=== PATIENT | female | born 1945 | race Caucasian/White ===

== ENCOUNTER → 2019-02-17 09:31 | Outpatient (CLI) | payer MEDICARE, SELFPAY ==
[2019-02-17 11:03] LABS: Alanine Aminotransferase 24 U/L (12-78); Albumin Level 3.5 gm/dL (3.4-5.0); Alkaline Phosphatase 72 U/L (46-116); Aspartate Amino Transferase 17 U/L (15-37); Bilirubin,Total 0.7 mg/dL (0.2-1.0); Blood Urea Nitrogen 12 mg/dL (7-18); Calcium 9.1 mg/dL (8.5-10.1); Carbon Dioxide 30 mmol/L (21.0-32.0); Chloride 105 mmol/L (98-107); Chol/HDL Ratio 4.8 (1-3.5); Cholesterol 217 mg/dL (140-200); Estimated Glomerular Filt Rate 71 ml/min (>60); GFR (African American) 85 ML/MIN (>60); Globulin 3.5 gm/dl (1.3-3.2); Glucose 93 mg/dL (74-106); HDL Cholesterol 45 mg/dL (29-89); LDL Cholesterol 151 mg/dL (0-130); Sodium 143 mmol/L (136-145); Triglycerides 105 mg/dL (30-200); VLDL Cholesterol 21 mg/dL (0-40)
== END ==
PROVIDERS: Visit Provider Nurse Practitioner Family
DX: I10 Essential (primary) hypertension (principal); Z13.220 Encounter for screening for lipoid disorders
CPT/HCPCS: 36415; 80053; 80061

== ENCOUNTER → 2020-04-12 09:21 | Outpatient (CLI) | payer MEDICARE, OTHER, SELFPAY ==
--- NOTE | 2020-04-12 09:28 | XR_ITS ---
PROCEDURE: XR DEXA AXIAL SKELETON CLINICAL INDICATION: POST MENOPAUSAL COMPARISON: No exams were available for comparison FINDINGS: The right 1/3 radial density is 0.543 grams/centimeters sq with T-score -2.5, osteoporosis. Total right hip density 0.760 grams/centimeters sq with a T-score -1.5, osteopenia Total spine density 0.958 grams/centimeters sq with a T-score -0.8. IMPRESSION: Osteoporosis with high fracture risk. Treatment advised. Suggest follow-up exam in 1 year Dictated by: Andi Mata MD 04/13/2020 06:43 Electronically signed by Andi Mata MD in [place] 04/13/2020 06:43
--- NOTE | 2020-04-12 09:28 | MM_ITS ---
PROCEDURE: MM DIG SCREENING MAMM BI W/CAD Digital Breast Tomosynthesis Included CLINICAL INDICATION: SCREENING There is no personal or family history of breast cancer. Patient has multiple moles on both breasts too many to marked all of them COMPARISON: BC MAMM SCREENING BILAT DIGIT PNL from 10/29/2006 AB MAMM SCREEN BILAT DIG PNL from 01/14/2009 DMSB DIG MAMM-SCREEN MEAGHAN W/CAD from 03/05/2017 TECHNIQUE: Standard CC and MLO images and 3D Tomosynthesis was obtained. R2 CAD reviewed. FINDINGS: Scattered fibroglandular densities are seen in both breast. There are multiple mole markers and there additional mole seen on each breast not marked. Ck images are helpful in confirming the additional on marked moles. There is arterial calcification right breast. There is no suspicious lesion in either breast and no suspicious microcalcifications. There is a stable low-lying node right axilla. IMPRESSION: Fibrofatty parenchyma with no suspicious lesions seen BI-RAD Category: 2 Benign Finding(s) FOLLOW-UP: 1YR 1 Year Follow-up (A letter has been sent to the patient regarding results of the study.) Dictated by: Dr. Hema Shaffer MD 04/14/2020 10:[address] Hema Shaffer MD in [place] 04/14/2020 10:51
== END ==
PROVIDERS: PCP Family Medicine; Visit Provider Nurse Practitioner Family
DX: Z12.31 Encounter for screening mammogram for malignant neoplasm of breast (principal); M81.0 Age-related osteoporosis without current pathological fracture
CPT/HCPCS: 77063; 77067; 77080

== ENCOUNTER → 2020-05-11 14:27 | Outpatient (POV) | payer MEDICARE, OTHER, SELFPAY | PROVIDERS: Visit Provider Dermatology | DX: Z00.00 Encounter for general adult medical examination without abnormal findings (principal) ==

== ENCOUNTER → 2020-09-27 11:13 | Outpatient (CLI) | payer MEDICARE, OTHER, SELFPAY ==
--- NOTE | 2020-09-27 11:22 | XR_ITS ---
PROCEDURE: XR HIP RT 2-3V W/PELVIS CLINICAL INDICATION: RT HIP PAIN COMPARISON: CR PELAP PELVIS AP ONLY from 09/05/2013 FINDINGS: There are mild osteoarthritic changes of the right hip which have progressed since 09/05/2013. There has been a prior total left hip prosthesis placed on the left. Sclerotic focus is present in the lower ilium on the left slightly increased in size. There are bilateral old superior and in inferior pubic rami fractures. IMPRESSION: 1. 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 Old bilateral pubic rami fractures. 3. Prior total left hip prosthesis 4. Sclerotic focus lower ilium on the left slightly increased in size possibly due to a bone island Dictated by: Andi Mata MD 09/27/2020 14:32 Andi Mata MD in [place] 09/27/2020 14:32
== END ==
PROVIDERS: PCP Family Medicine; Visit Provider Nurse Practitioner Family
DX: M25.551 Pain in right hip (principal)
CPT/HCPCS: 73502

== ENCOUNTER → 2020-10-08 09:25 | Outpatient (CLI) | payer MEDICARE, OTHER, SELFPAY ==
[2020-10-08 11:00] LABS: Blood Urea Nitrogen 12 mg/dl (7-17); Estimated Glomerular Filt Rate 70 ml/min (>60); GFR (African American) 85 ML/MIN (>60)
== END ==
PROVIDERS: Visit Provider Surgery
DX: Z01.818 Encounter for other preprocedural examination (principal); K43.9 Ventral hernia without obstruction or gangrene
CPT/HCPCS: 36415; 82565; 84520

== ENCOUNTER → 2020-10-15 09:27 | Outpatient (CLI) | payer MEDICARE, SELFPAY ==
--- NOTE | 2020-10-15 09:28 | CT_ITS ---
PROCEDURE: CT ABDOMEN PELVIS W CON CLINICAL INDICATION: Abdominal hernia x2 years Evaluate abdominal wall hernia COMPARISON: CT ABDPELW CT ABD PELVIS W/ CONTRAST from 08/28/2017 TECHNIQUE: IV Contrast: 75ML Isovue 370 Oral Contrast None Axial images obtained with sagittal and coronal reformats. All CT scans at the facility use one or more dose reduction, viz: automated exposure control, ma/kV adjustment per patient size (including targeted exams where dose is matched to indication, i.e. head), or iterative reconstruction technique. FINDINGS: LOWER THORAX: There are mild atelectatic changes in the lung bases. Coronary artery calcifications are present. Mitral valve annular calcifications small hiatal hernia ABDOMEN & PELVIS: There is a stable 1 cm hypodensity in the right hepatic lobe. Cholelithiasis noted. There is history given of splenectomy. Lobular soft tissue density noted in the left upper quadrant and may be related to residual splenic tissue or hypertrophied splenule. There is a 5 mm hypodensity in the anterior aspect of this region nonspecific. No renal or ureteral calculi. No renal mass. The pancreas has an unremarkable appearance. No intestinal obstruction or free air. There are scattered small nodes in the mesenteries. No evidence of appendicitis or diverticulitis. No intestinal obstruction or free air. Nearly 5 cm superior to the umbilicus there is a small central abdominal wall hernia fat appears to invaginate into the peritoneal region from the anterior abdominal wall at the hernia site. The hernia orifice is approximately 1 cm in width.. There is also a small umbilical hernia containing fat. No obvious inguinal hernia. There is also a spigelian hernia on the left containing fat not significantly changed. There has been a total left hip replacement with artifact. Old pelvic fractures are noted involving the superior pubic ramus and inferior pubic ramus bilaterally. There are old left-sided rib fractures. IMPRESSION: 1. Cholelithiasis. 2. Abdominal wall hernias as described above including a small ventral hernia in the supraumbilical region, umbilical hernia, and left-sided spigelian hernia. Please see above for description. All these hernias contain fat. 3. Other nonacute findings as described above Dictated by: Andi Mata MD 10/16/2020 09:05 Andi Mata MD in [place] 10/16/2020 09:05
== END ==
PROVIDERS: PCP Family Medicine; Visit Provider Surgery
DX: K43.9 Ventral hernia without obstruction or gangrene (principal)
CPT/HCPCS: 74177; Q9967

== ENCOUNTER → 2020-11-22 08:01 | Outpatient (CLI) | payer MEDICARE, SELFPAY ==
[2020-11-22 08:45] LABS: Basophils # 0.1 K/mm3 (0-0.2); Basophils % 1.2 % (0.1-2.0); Eosinophils # 0.2 K/mm3 (0.0-0.4); Eosinophils % 1.6 % (0.1-12.0); Hematocrit 41.8 % (37.0-47.0); Hemoglobin 13.7 g/dL (12.2-16.2); Lymphocytes # 3.4 K/mm3 (0.7-4.5); Lymphocytes % 35.8 % (10-50); Mean Corpuscular HGB Conc 32.7 g/dL (31.8-35.4); Mean Corpuscular Hemoglobin 30.3 pg (27.0-31.2); Mean Corpuscular Volume 92.8 fl (81-99); Mean Platelet Volume 8.3 fl (7.4-10.4); Monocytes # 0.9 K/mm3 (0.1-1.0); Monocytes % 9.1 % (1.7-9.3); Neutrophils % 52.3 % (37.0-80.0); Platelet Count 310 K/mm3 (142-424); Red Cell Distribution Width 13.6 % (11.5-17.5); White Blood Count 9.6 K/mm3 (4.8-10.8)
[2020-11-22 09:10] LABS: Chloride 106 mmol/L (98-107); Sodium 141 mmol/L (136-145)
[2020-11-22 09:13] LABS: Alanine Aminotransferase 18 U/L (12-78); Albumin Level 4.3 g/dl (3.5-5.0); Albumin/Globulin Ratio 1.5 (1.1-1.8); Alkaline Phosphatase 75 U/L (38-126); Aspartate Amino Transferase 27 U/L (14-36); Bilirubin,Total 0.7 mg/dl (0.2-1.3); Blood Urea Nitrogen 12 mg/dl (7-17); Carbon Dioxide 27 mmol/L (22.0-30.0); Estimated Glomerular Filt Rate 70 ml/min (>60); GFR (African American) 85 ML/MIN (>60); Globulin 2.9 g/dL (1.3-3.2); Total Protein,Serum 7.2 g/dl (6.3-8.2)
[2020-11-22 09:14] LABS: Calcium 9.6 mg/dl (8.4-10.2); Glucose 110 mg/dl (74-100)
[2020-11-22 09:39] LABS: Coronavirus 19 IgG Antibody Positive (Negative); Coronavirus 19 IgM Antibody Negative (Negative)
== END ==
PROVIDERS: Visit Provider Surgery
DX: K43.9 Ventral hernia without obstruction or gangrene (principal); Z01.818 Encounter for other preprocedural examination; Z11.52 Encounter for screening for COVID-19
CPT/HCPCS: 36415; 80053; 85025; 86328

== ENCOUNTER 2020-11-23 06:07 | Day surgery (SDC) | payer MEDICARE, SELFPAY ==
[2020-11-16 13:45] VITALS: BMI 35.7
[2020-11-23] VITALS (11 sets, daily range): BP systolic 91–154; BP diastolic 46–88; PULSE 58–83; RESP 15–18; TEMP 36.3–43; O2SAT 94–100
--- NOTE | 2020-11-23 06:52 | HMH.GSHP ---
HPI HPI: Patient presents for surgery for left lower quadrant hernia.. She is a pleasant 75-year-old female referred by Marsha Murillo and Dr. Sparrow's office for abdominal hernia. Patient underwent laparoscopic hysterectomy in 2016. 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 She had noticed a bulge in the left lower quadrant about 2 years ago. Initially it was relatively asymptomatic. She does state that she had an ultrasound of the area. However it has increased in size and become much more bothersome to her. She has to manually reduce the area. She has increasing symptoms when she is bending over or sleeping on that side. When I saw her initially in the office she had findings consistent with left lower quadrant trocar site hernia. Size and nature were difficult to evaluate on examination. Due to this fact and due to the fact that she had an upper midline laparotomy scar I had her undergo CT scan of the abdomen and pelvis. This reveals a tiny possible hernia at the umbilical area and probable small hernia 5 cm superior to this. She also has a Spigellian hernia in the left lower quadrant. These hernias contain fat. [facility] History I have reviewed the patient's past medical history: Yes Medical History: Reports:: Hypertension Denies:: Cancer, Diabetes Mellitus Type 1, Diabetes Mellitus Type 2, Internal Pacemaker, Lung Disease, MRSA, Seizures *Have you ever received a pneumonia vaccine?: No *Have you received a flu vaccine this season?: No Other Medical History: Denies: Blood Transfusion Reaction Laterality Cases: Left: Total Hip Replacement, Bilateral: Tonsillectomy Other Surgeries: Yes: Colonoscopy, Hysterectomy-Total, Splenectomy, Other (Hyster, ). No: Pacemaker Amputation: No Fractures: Yes - *Social History Last grade of school completed: Some college Smoking Status: Never smoker Alcohol Intake: never Substance Use Type: denies use *Occupational Status:: retired Housing: house *Travel in the last 8 weeks: None Family Hx:: Diabetes, Stroke Review of Systems - Review of Systems Review of systems:: pertinent systems reviewed and negative unless documented below Meds Home Medications Medication Instructions Recorded Confirmed Type Aspirin [Lo-Dose Aspirin EC] 81 mg PO DAILY 11/16/20 11/23/20 History Losartan Potassium 50 mg PO DAILY 11/16/20 11/23/20 History hydroCHLOROthiazide [HCTZ 12.5mg 12.5 mg PO DAILY 11/16/20 11/23/20 History cap] Allergies Allergy/AdvReac Type Severity Reaction Status Date / Time No Known Allergies Allergy Verified 11/23/20 06:18 Exam Vital signs and Labs for Last 24 Hours: Temp Pulse Resp BP Pulse Ox 98.1 F 79 18 154/88 H 97 11/23/20 06:23 11/23/20 06:23 11/23/20 06:23 11/23/20 06:23 11/23/20 06:23 - *Routine HEENT Exam Head: Present: normocephalic Eye: Present: EOMI, PERRL ENT: Present: mucous membranes moist - *Routine Neck Exam Present: supple. Absent: lymphadenopathy - *Routine Respiratory Exam Present: CTA bilaterally - *Routine Cardiovascular Exam Present: RRR - *Routine Abdominal Exam Present: soft, normoactive bowel sounds. Absent: tenderness Comments: Palpable hernia in the left lower quadrant. - *Routine Extremities Exam Absent: cyanosis, clubbing, edema - *Routine Skin Exam Present: warm. Absent: rash - *Routine Neurological Exam Present: alert, oriented X3 Assessment and Plan - Assessment and plan all Dx Assessment and Plan for all problems:: Plan for attempted laparoscopic repair with concentration on the left lower quadrant hernia. Will assess the mid and upper abdomen although the incidental findings of hernias at this location appears to be likely subclinical and incidental.
--- NOTE | 2020-11-23 07:07 | HMH.ANESCL ---
[facility] Anesthesia Checklist - Patient Identification Patient Identification: Arm Band - Structural Data Admitted From: Home Planned Operative Procedure/s: Laparoscopic Ventral Hernia Repair Consent for Planned Operative Procedure(s) Verified: Yes Verified Documents: Surgical Consent, History and Physical - NPO Status Verified Time NPO: 00:00 - Additional verifications Anesthesia Reactions: No Hx Blood Transfusions: No Blood Transfusion Reaction: No - Airway Assessment C-Spine Mobility Assessed: Yes (mp2) TMJ Mobility Assessed: Yes Dentition: Good Dentition - Neurological Assessment Level of Consciousness: Awake, Alert - Anesthesia Plan Anesthesia Risk discussed: Yes Anesthesia Plan: Verified ASA Class: II Anesthesia Type: General [facility] History I have reviewed the patient's past medical history: Yes Medical History: Reports:: Hypertension Denies:: Cancer, Diabetes Mellitus Type 1, Diabetes Mellitus Type 2, Internal Pacemaker, Lung Disease, MRSA, Seizures *Have you ever received a pneumonia vaccine?: No *Have you received a flu vaccine this season?: No Other Medical History: Denies: Blood Transfusion Reaction Anesthesia experience/problems:: nac Laterality Cases: Left: Total Hip Replacement, Bilateral: Tonsillectomy Other Surgeries: Yes: Colonoscopy, Hysterectomy-Total, Splenectomy, Other (Hyster, ). No: Pacemaker Amputation: No Fractures: Yes - *Social History Last grade of school completed: Some college Smoking Status: Never smoker Alcohol Intake: never Substance Use Type: denies use *Occupational Status:: retired Housing: house *Travel in the last 8 weeks: None Family Hx:: Diabetes, Stroke
--- NOTE | 2020-11-23 09:27 | HMH.OPNOTE ---
Date of procedure: 11/23/20 Pre-op Diagnosis:: Ventral incisional all trocar hernia Post-op Diagnosis:: Same Procedure performed:: Laparoscopic ventral hernia repair with placement of Bard ventral light ST mesh (4.5 inch absentee-shawnee) Surgeon:: Clemente Florez MD PROP ATTENDANT:: Other Anesthesia: ANDERS Estimated blood loss (mL): 15 Clinical Note:: Patient presents for surgery for left lower quadrant hernia.. She is a pleasant 75-year-old female referred by Marsha Murillo and Dr. Sparrow's office for abdominal hernia. Patient underwent laparoscopic hysterectomy in 2016. 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 She had noticed a bulge in the left lower quadrant about 2 years ago. Initially it was relatively asymptomatic. She does state that she had an ultrasound of the area. However it has increased in size and become much more bothersome to her. She has to manually reduce the area. She has increasing symptoms when she is bending over or sleeping on that side. When I saw her initially in the office she had findings consistent with left lower quadrant trocar site hernia. Size and nature were difficult to evaluate on examination. Due to this fact and due to the fact that she had an upper midline laparotomy scar I had her undergo CT scan of the abdomen and pelvis. This reveals a tiny possible hernia at the umbilical area and probable small hernia 5 cm superior to this. She also has a Spigellian hernia in the left lower quadrant. These hernias contain fat. Plan was made for laparoscopic repair of the left lower quadrant trocar site incisional hernia with an reasonable attempt to evaluate the subclinical nonpalpable incidental midline hernia. Operative findings:: She had extensive intra-abdominal adhesions. Left lower quadrant hernia had an appreciable amount of omentum and the sigmoid colon was partially herniated as well. Sigmoid colon was densely adherent to the surrounding peritoneum. Operative note:: Patient was taken to the operating room. She was positioned in a supine position. She had general anesthesia induced via endotracheal tube. Retana catheter was placed. She was positioned with her left side up somewhat using a beanbag. Abdomen was then thoroughly prepped and draped in the standard surgical fashion. Through a tiny 1 mm incision in the left subcostal area Veress needle was inserted. CO2 pneumoperitoneum was achieved to 15 mmHg. In the right lower abdomen 5 mm optical trocar was inserted. She was noted to have quite extensive intra-abdominal adhesions to the midline consisting mostly of omentum. Ultimately additional 5 mm trochars were inserted in the right upper abdomen and near the epigastrium in the left upper quadrant. Extensive adhesions were taken down using combination of blunt dissection, Metzenbaum dissection, and Lavon ultrasonic harmonic rizwana. Attention was then ultimately turned to the left lower quadrant hernia. Of note, there was no appreciable obvious hernia in the midline although that was some extensive fibrosis and adhesions from her prior midline laparotomy. Therefore decision was made to forego any potential repair at this location. Attention was then turned to the left lower quadrant hernia. Careful prolonged dissection was carried out reducing the herniated fatty tissues. The sigmoid colon was partially herniated and adherent to the peritoneum. This required very careful meticulous dissection to dissected free from the hernia fascial edges. Ultimately the hernia contents were completely reduced and the fascial edges were cleared free. The left upper quadrant 5 mm trocar was replaced with a 12 mm trocar. A 4.5 cm circular Bard ventral light ST mesh with the positioning system was inserted into the peritoneal cavity. The positioning system insufflation tubing was brought through a tiny incision overlying the hernia. Positioning system balloon was then inflated to
--- NOTE | 2020-11-23 09:38 | HMH.ANESI ---
[facility] Anesthesia Record Part I Intake, IV Amount: 600 Estimated blood loss (mL): 15 Urine output (mL): 300 Blood Pressure: 91/49 SaO2: 100 Pulse Rate: 79 Respiratory Rate: 16 Temperature: 98.1 F Patient is:: Drowsy, Oral/Nasal airway
[2020-11-23 14:30] LABS: Microscopic,Cath URINE MICROSCOPIC (MICROSCOPIC)
[2020-11-23 14:40] LABS: Appearance,Urine/Cath CLEAR (Clear); Bilirubin,Cath Negative (Negative); Blood, Urine/Cath Negative (Negative); Color,Urine/Cath YELLOW (Yellow); Glucose,Urine/Cath (UA) Negative (Negative); Ketones,Urine/Cath Negative (Negative); Leukocyte Esterase,Cath Negative (Negative); Nitrate,Cath Negative (Negative); Protein,Urine/Cath Negative (Negative); Specific Gravity, Urine/Cath 1.015 (1.005-1.030); Urobilinogen,Cath 0.2 EU/dl (0.2)
[2020-11-23 15:20] LABS: Squamous Epithelial Ur./Cath Occasional #/hpf (0-5)
--- NOTE | 2020-11-24 10:14 | HMH.ANESII ---
[facility] Anesthesia Record Part II Discharge Time: 10:05 Destination: Surgical Day Care (OP Surgery) PACU nurse assessment reviewed?: Yes Patient Condition:: Good Anesthesia Complications:: None Swallowing reflex intact?: Yes Cyanosis?: No Blood Pressure: 124/55 Pulse Rate: 68 Temperature: 97.3 F Mental Status: Alert & Oriented Pain level:: 0 Nausea and/or vomitting:: None Intake, IV Amount: 0
[2020-11-24 10:17] VITALS: BP 124/55; PULSE 68; TEMP 36.3
== END 2020-11-23 10:51 | disposition home or self-care (01) ==
LOC: OR 06:09
PROVIDERS: PCP Family Medicine; Visit Provider Surgery
PROC: 0WQF4ZZ Repair Abdominal Wall, Percutaneous Endoscopic Approach (ICD-10-PCS; CPT 49654; principal; 2020-11-23 07:30)
DX: K43.2 Incisional hernia without obstruction or gangrene (principal); K66.0 Peritoneal adhesions (postprocedural) (postinfection); Z90.81 Acquired absence of spleen; I10 Essential (primary) hypertension; Z96.642 Presence of left artificial hip joint; Z79.82 Long term (current) use of aspirin; Z79.899 Other long term (current) drug therapy
CPT/HCPCS: 49654; 81001; 96374; C1781; J0131; J2710

== ENCOUNTER 2021-11-28 09:00 | Outpatient (RCR) | payer MEDICARE, SELFPAY | END 2021-11-28 09:05 | disposition home or self-care (01) | LOC: PT 09:00 | PROVIDERS: PCP Family Medicine; Visit Provider Orthopaedic Surgery | DX: S72.141D Displaced intertrochanteric fracture of right femur, subsequent encounter for closed fracture with routine healing (principal) | CPT/HCPCS: 97010; 97014; 97110; 97112; 97163; 97164; G0283 ==

== ENCOUNTER → 2021-12-06 06:34 | Outpatient (CLI) | payer MEDICARE, SELFPAY ==
--- NOTE | 2021-12-06 06:56 | CT_ITS ---
FINAL REPORT CLINICAL HISTORY: .surgery may 2021, right hip pain FINDINGS: CT RIGHT HIP WITHOUT CONTRAST TECHNIQUE: Axial, reformatted, and 3D images were obtained of the right hip. This study was performed with techniques to keep radiation doses as low as reasonably achievable, (ALARA). Individualized dose reduction techniques using automated exposure control or adjustment of mA and/or kV according to the patient's size were employed. FINDINGS: There is an IM radha with compression screw securing a comminuted fracture of the proximal right femur. Streak artifact obscures optimal visualization. Fracture lines remain visible. There is moderate right hip joint space narrowing. There are prominent degenerative subchondral cysts in the anterior acetabulum. Degenerative subchondral cysts measure up to 1.6 cm in greatest dimension. There is advanced osteoarthritis at the medial left hip joint IMPRESSION: Postoperative and degenerative changes as above. Reviewed, Interpreted and Dictated by Teodoro Cedillo MD Transcribed by Kristina Lynne Authenticated by Teodoro Cedillo MD on 12/06/2021 07:52:[address] [facility]
== END ==
PROVIDERS: PCP Family Medicine; Visit Provider Orthopaedic Surgery
DX: S72.141D Displaced intertrochanteric fracture of right femur, subsequent encounter for closed fracture with routine healing (principal)
CPT/HCPCS: 73700

== ENCOUNTER → 2021-12-29 14:30 | Outpatient (CLI) | payer MEDICARE, SELFPAY ==
--- NOTE | 2021-12-29 14:34 | MR_ITS ---
FINAL REPORT CLINICAL HISTORY: RT LEG PAIN. fall may 17 2021. 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 FINDINGS: Multiplanar MR imaging of the lumbar spine was performed without contrast. On the sagittal T2-weighted images, disc degeneration is seen throughout. There is jxiw-bs-owhhfoyr loss of height at L2-3 and L3-4. The vertebral alignment is normal. L1-2: There is no significant canal stenosis or neural foraminal narrowing. L2-3: Nsqu-pn-dnppctru diffuse disc bulge is present. There is wbtc-fu-cyjmuvwl bilateral neural foraminal narrowing. L3-4: Moderate diffuse disc bulge is present. There is moderate bilateral neural foraminal narrowing. There is moderate spinal canal compromise. L4-5: Moderate facet hypertrophy is present. L5-S1: There is no significant canal stenosis or neural foraminal narrowing. IMPRESSION: Diffuse disc bulges at L2-3 and L3-4 with spinal and neural foraminal compromise as above. Reviewed, Interpreted and Dictated by Teodoro Cedillo MD Transcribed by Marsha Negron Authenticated by Teodoro Cedillo MD on 12/29/2021 04:17:[address] [facility]
== END ==
PROVIDERS: PCP Family Medicine; Visit Provider Orthopaedic Surgery
DX: M79.604 Pain in right leg (principal)
CPT/HCPCS: 72148; 76376

== ENCOUNTER 2022-07-20 09:00 | Outpatient (RCR) | payer MEDICARE, SELFPAY | END 2022-07-20 09:05 | disposition home or self-care (01) | LOC: PT 09:00 | PROVIDERS: PCP Family Medicine; Visit Provider Orthopaedic Surgery | DX: M25.551 Pain in right hip (principal) | CPT/HCPCS: 97010; 97014; 97110; 97163; 97164; G0283 ==

== ENCOUNTER → 2023-02-23 14:54 | Outpatient (CLI) | payer MEDICARE, SELFPAY ==
--- NOTE | 2023-02-23 14:54 | CT_ITS ---
FINAL REPORT TECHNIQUE: Thin section axial CT with coronal reconstruction without IV contrast. This study was performed with techniques to keep radiation doses as low as reasonably achievable (ALARA). Individualized dose reduction techniques using automated exposure control or adjustment of mA and/or kV according to the patient's size were employed. CLINICAL HISTORY: sinusitis, unable to breath from Rt nostril since October. Nonsmoker, 0 ca hx. FINDINGS: There is severe right maxillary sinusitis with complete opacification. There is partial right frontal and right ethmoid sinusitis. There is opacification of the right ostiomeatal unit compatible with obstruction. The left paranasal sinuses and sphenoid sinuses are clear. The nasal septum is mildly deviated to the right. IMPRESSION: Right sided sinusitis, likely related to obstruction of the ostiomeatal unit. Reviewed, Interpreted and Dictated by Hien Rg MD Transcribed by Marsha Negron Authenticated and [facility]
== END ==
PROVIDERS: PCP Family Medicine; Visit Provider Nurse Practitioner
DX: J32.8 Other chronic sinusitis (principal)
CPT/HCPCS: 70486

== ENCOUNTER → 2023-06-12 16:00 | Outpatient (CLI) | payer MEDICARE, SELFPAY ==
--- OUTSIDE RECORDS SUMMARY | 2023-06-19 10:25 | XMS_ITS | Patient Health Record ---
Author Name Unknown [facility] Address [address] [place] [address] Care Team Providers Care Stock Unloader Name Role Phone Self Referral, Self Primary Care Provider Taylor Velarde Unavailable Maryan Finnegan Unavailable [phone] [employer] Unavailable [phone] ALLERGIES No Known Allergies REASON FOR REFERRAL Reason counseling for costs on tenotomy for right hip with her insurance Referral Organization [facility] Referring Provider First Name Taylor Referring Provider Last Name Trey arambula Referring Provider Speciality Interventi onal Pain Management Referred Provider [facility]ty [facility] Referral Priority Routine Reason Cost for tenotomy if hip injections don't work? ECSW series is an alternative option Referral Organization [facility] Referring Provider First Name Taylor Referring Provider Last Name Trey arambula Referring Provider Speciality Interventi onal Pain Management Referred Provider [facility]ty [facility] Referral Priority Routine MEDICATIONS Medication SIG (Take, Route, Fr equency, Duration) Notes Start Date End Date Status losartan 25 mg 1 tab(s) orally once a day PRN Active Tylenol Active ibuprofen Active meloxicam Active SOCIAL HISTORY Tobacco Use:
== END ==
PROVIDERS: Visit Provider Student in an Organized Health Care Education/Training Program
DX: J32.9 Chronic sinusitis, unspecified (principal)
CPT/HCPCS: 87070

== ENCOUNTER 2025-01-07 09:52 | Outpatient (CLI) | payer MEDICARE, OTHER, SELFPAY ==
--- NOTE | 2025-01-07 10:02 | XR_ITS ---
FINAL REPORT CLINICAL HISTORY: rt hip pain hx of pelvic fx and rt hip surg COMPARISON: None FINDINGS: AP and frog leg views of the right hip were obtained, as well as an AP view of the pelvis. The patient has undergone prior ORIF, with intact hardware. There is no acute fracture or dislocation. Degenerative joint disease is present. There are chronic appearing defects in the bilateral inferior and superior pubic rami. Soft tissues are unremarkable. IMPRESSION: No acute osseous abnormality of the right hip. Prior right ORIF, with intact hardware. Reviewed, Interpreted and Dictated by Mague Copeland MD Transcribed by Teetee Blanc Authenticated and [facility]
== END 2025-01-07 23:59 | disposition home or self-care (01) ==
LOC: RAD 09:58
PROVIDERS: PCP Family Medicine; Visit Provider Physician Assistant
DX: M25.551 Pain in right hip (principal)
CPT/HCPCS: 73502

== ENCOUNTER 2025-01-12 14:06 | Outpatient (CLI) | payer MEDICARE, OTHER, SELFPAY ==
--- NOTE | 2025-01-12 14:08 | CA_ITS ---
APPROVED REPORT EXAM: Comprehensive 2D, Doppler, and color-flow Echocardiogram Pigeon Fancier: Staci Live RT(R) Ht: 5 ft 8 in Wt: 230lbs BSA: 2.17 BP: 118/70 mmHg Indications: dyspnea, HTN, DEVLIN 2D Dimensions Left Atrium 4.32 cm F: 2.7 - 3.8 LA Volume 44.70 mL LVOT 1.91 cm (M/F) 1.5-2.5 LA Volume Index 20.60 mL/m2 (M/F) 16-34 EF AP4 54.00 % GL Strain -16.6 % M-Mode Dimensions RVDd 2.72 cm (0.9-2.6) LVDd 4.44 cm (3.5-5.7) Ao Diam 3.03 cm (2.0-3.7) LVDs 3.28 cm (3.5-5.7) IVSd 0.96 cm (0.6-1.1) PWd 0.96 cm (0.6-1.1) EF (Teich) 51.50% FS 26.10% EDV (Teich) 89.60 mL ESV (Teich) 43.50 mL LV Diastology E Decel Time 200 (160-240 msec) E/A Ratio 2.0 MED E' 13.8 (>= 7 cm/sec) E'/MED E' Ratio 6.66 (<= 14) LAT E' 11.1 (>= 10 cm/sec) E/LAT E' Ratio 8.28 (<= 14) Mitral Valve MV E Max Karel. 92.0 (40-130 cm/s) MV A Velocity 47.0 (40-130 cm/s) E/A Ratio 1.93 MV Decel. Time 200 (160-240 ms) Tricuspid Valve TR P. Velocity 324.00 cm/s RAP Estimate 10.00 mmHg RVSP 51.90 mmHg Left Ventricle The left ventricle is normal size. There is increased LV wall thickness. The left ventricular systolic function is normal. The left ventricular ejection fraction is within the normal range. There is normal LV segmental wall motion. The left ventricular diastolic function is normal. LVEF is 55%. Right Ventricle The right ventricle is normal size. The right ventricular systolic function is normal. Atria Left atrium is moderately dilated. Right atrium is mildly dilated. There is no Doppler evidence of interatrial shunt. Aortic Valve The aortic valve is mildly thickened. There is no aortic valvular stenosis. No aortic regurgitation is present. Mitral Valve The mitral valve is normal in structure. No evidence of mitral valve stenosis. Mild mitral regurgitation. Tricuspid Valve Tricuspid valve is grossly normal in structure and function. Mild tricuspid regurgitation. RVSP 40-45 mmHg. Pulmonic Valve The pulmonary valve is normal in structure. Trace pulmonic regurgitation. Great Vessels The aortic root is normal in size. IVC is normal in size and collapses >50% with inspiration. Pericardium There is no pericardial effusion. Other Information Study Quality: Fair Conclusion Normal biventricular systolic function. Mild biatrial dilation. Mild MR, mild TR. RVSP 40-45 mmHg. Electronically signed by : Marcy Pierre MD 01/18/2025 17:05:54
== END 2025-01-12 23:59 | disposition home or self-care (01) ==
LOC: RT 14:06
PROVIDERS: PCP Family Medicine; Visit Provider Family Medicine
DX: I51.7 Cardiomegaly (principal); I34.0 Nonrheumatic mitral (valve) insufficiency; I36.1 Nonrheumatic tricuspid (valve) insufficiency; R06.00 Dyspnea, unspecified
CPT/HCPCS: 93306

== ENCOUNTER 2025-01-20 15:13 | Outpatient (CLI) | payer MEDICARE, OTHER, SELFPAY ==
[2025-01-20 16:28] LABS: Basophils # 0.1 K/mm3 (0-0.2); Basophils % 0.9 % (0.1-2.0); Eosinophils # 0.2 Kmm3 (0.0-0.4); Eosinophils % 1.9 % (0.1-12.0); Hematocrit 40.6 % (37.0-47.0); Hemoglobin 13.3 g/dL (12.2-16.2); Immature Granulocytes # 0.05 10^3uL; Immature Granulocytes % 0.4 %; Lymphocytes # 3.4 K/mm3 (0.7-4.5); Lymphocytes % 29.8 % (10-50); Mean Corpuscular HGB Conc 32.8 g/dL (31.8-35.4); Mean Corpuscular Hemoglobin 30.6 pg (27.0-31.2); Mean Corpuscular Volume 93.3 fl (81-99); Mean Platelet Volume 10.7 fl (7.4-10.4); Monocytes # 1.5 K/mm3 (0.1-1.0); Monocytes % 12.9 % (1.7-9.3); Neutrophils # 6.2 K/mm3 (1.8-7.8); Neutrophils % 54.1 % (37.0-80.0); Nucleated Red Blood Cells # 0 10^3/uL; Nucleated Red Blood Cells % 0 %; Platelet Count 277 K/mm3 (142-424); Red Blood Count 4.35 M/mm3 (4.20-5.40); Red Cell Distribution Width 13.2 % (11.5-17.5); Red Cell Distribution Width-SD 45.2 fL; White Blood Count 11.5 K/mm3 (4.8-10.8)
[2025-01-20 17:07] LABS: Alanine Aminotransferase 23 U/L (12-78); Albumin Level 4.4 g/dl (3.5-5.0); Alkaline Phosphatase 74 U/L (38-126); Aspartate Amino Transferase 34 U/L (14-36); Bilirubin,Direct 0.2 mg/dl (0.0-0.4); Bilirubin,Indirect 0.3 mg/dL (0.0-0.9); Bilirubin,Total 0.5 mg/dl (0.2-1.3); Bilirubin,Unconjugated 0.3 mg/dL (0.0-1.1); Blood Urea Nitrogen 14 mg/dl (7-17); Calcium 9.2 mg/dl (8.4-10.2); Carbon Dioxide 28 mmol/L (22.0-30.0); Chloride 107 mmol/L (98-107); Cholesterol 250 mg/dl (140-200); Estimated Glomerular Filt Rate 81 ml/min (>60); GFR (African American) 98 ML/MIN (>60); Glucose 80 mg/dl (74-100); HDL Cholesterol 62 mg/dl (40-60); Magnesium 2.2 mg/dl (1.6-2.3); Sodium 138 mmol/L (136-145); Total Protein,Serum 7.3 g/dl (6.3-8.2); Triglycerides 161 mg/dl (30-150); VLDL Cholesterol 32 mg/dL (0-40)
[2025-01-20 17:18] LABS: Direct LDL Cholesterol 141.65 mg/dL (100-129)
[2025-01-20 17:22] LABS: Free T4 (Free Thyroxine) 1.29 ng/dl (0.78-2.19)
[2025-01-20 17:37] LABS: Thyroid Stimulating Hormone 3.92 uIU/mL (0.465-4.68)
== END 2025-01-20 23:59 | disposition home or self-care (01) ==
LOC: LAB 15:15
PROVIDERS: PCP Family Medicine; Visit Provider Internal Medicine
DX: I51.7 Cardiomegaly (principal); R06.02 Shortness of breath; I34.0 Nonrheumatic mitral (valve) insufficiency; K21.9 Gastro-esophageal reflux disease without esophagitis; E78.5 Hyperlipidemia, unspecified
CPT/HCPCS: 36415; 80048; 80061; 80076; 83735; 84439; 84443; 85025

== ENCOUNTER 2025-01-29 12:13 | Outpatient (CLI) | payer MEDICARE, OTHER, SELFPAY ==
--- NOTE | 2025-01-29 | CA_ITS ---
APPROVED REPORT Exam: Pharmacologic Technologist: Dennise Douglas Ht: 5 ft 8 in Wt: 235 lbs BSA: 2.19 m2 Medical History Medications: azelastine, losartan-hctz Stress Test Details Test: Lexiscan Reason for pharmacologic stress test: physical limitation. HR Resting HR: 65 bpm Max Heart Rate (APMHR): 142 bpm Max HR Achieved: 93 bpm Target HR (85% APMHR): 121 bpm % of APMHR: 65 Recovery HR: 80 bpm BP Resting BP: 208.0/86.0 mmHg Max BP: 208.0/86.0 mmHg Recovery BP: 172.0/83.0 mmHg ECG Resting ECG: SR. No isch. ectopy Stress ECG Conclusion Symptoms: mild MCKEON, chest tightness. Arrhythmias/Ectopy: PVC. Lexiscan. ST-T Changes: None. Electronically signed by : Marcy Pierre MD 02/02/2025 15:59:29
--- NOTE | 2025-01-29 12:30 | NM_ITS ---
APPROVED REPORT Exam: Nuclear Stress Test Indication: SOB, Fatigue, HTN, Family history Patient Location: Outpatient Stress Tech: Dennise VERMA Tech:SABAS Lorenzo RT(R)(N) Ht: 5 ft 8 in Wt: 231 lbs Bra Size: 40D HR: 64 bpm BP: 208/86 mmHg BSA: 2.17 m2 TID: 1.10 BMI: 35.1 History: SOB, Fatigue, HTN, Family history Procedure: Patient received 0.4 mg of intravenous Lexiscan, resting heart rate 64 bpm, resting blood pressure 208/86 mmHg, with Lexiscan maximum heart rate achieved was 97 bpm which is % of the maximum predicted heart rate and blood pressure was 178/84 mmHg. With Lexiscan, patient denied any complaint of chest pain. Cardiac Stress and Resting SPECT Images: Cardiac Stress and Resting SPECT images were obtained using technetium 99m Myoview 29.9 mCi stress and 10.51 mCi at rest. Raw images demonstrate significant soft tissue overlap with the cardiac borders. This may affect the requested interpretation of the study findings. The patient is unable to lie on her abdomen. Therefore, prone images could not be performed. This may affect the diagnostic interpretation of the study findings. Resting and stress imaging in supine position demonstrate no evidence of fixed or reversible perfusion defects. Gated imaging demonstrates normal global and regional LV systolic function. LVEF is calculated at 55%. Conclusion: No evidence of fixed or reversible perfusion defects. Gated imaging demonstrates normal global and regional LV systolic function. LVEF is calculated at 55%. Electronically signed by : Marcy Pierre MD 02/02/2025 15:57:34
[2025-01-29] MEDS: SODIUM CHLORIDE 0.9% 10ML SYR (RAD ONLY) 10 ML IV ×2 (15:57→15:58)
[2025-01-29] MEDS: REGADENOSON 0.4MG/5ML SYRINGE 0.4 MG IV (15:57)
[2025-01-29] MEDS: ISOTOPE MYOVIEW (PER STUDY) 1 DOSE IV (15:58)
== END 2025-01-29 23:59 | disposition home or self-care (01) ==
LOC: RAD 12:15
PROVIDERS: PCP Family Medicine; Visit Provider Internal Medicine
DX: R06.02 Shortness of breath (principal); I34.0 Nonrheumatic mitral (valve) insufficiency; I07.1 Rheumatic tricuspid insufficiency; K21.9 Gastro-esophageal reflux disease without esophagitis; E78.5 Hyperlipidemia, unspecified
CPT/HCPCS: 78452; 93017; 93018; A9502; J2785

== ENCOUNTER → 2025-05-14 11:24 | Outpatient (CLI) | payer MEDICARE, OTHER, SELFPAY ==
--- OUTSIDE RECORDS SUMMARY | 2023-12-25 10:00 | XMS_ITS ---
Author Organization [facility]ini Address [address] [facility] [address] [place] [id number] Care Team Providers Care Internal Audit Director Name Role Phone Dick Sparrow Primary Care Provider Allergies No Known Allergies REASON FOR VISIT discuss referral cardiology Medications Medication SIG (Take, Route, Frequency, Duration) Notes Start Date End Date Status Losartan Potassium-HCTZ 50-12.5 MG 1 tab(s) orally once a day; Duration: 90 days Active Problems Problem Type SNOMED Code ICD Code Onset Dates Problem Status W/U Status Risk Notes Problem PVC (premature ventricular contraction) (I49.3) Active confirmed Vital Signs Blood pressure systolic 142 mm Hg 12/25/19 24 Blood pressure diastolic 88 mm Hg 024 Heart Rate 66 /min 12/25/2023 Height 66.50 in 12/25/2023 Weight 222.2 lbs 12/25/2023 BMI 35.32 kg/m2 12/25/2023 Encounters Encounter Location Date Provider Diagnosis [place] [address] [place] [phone] 12/25/2023 Dick Sparrow PVC (premature ventricular contraction) [...] Next Appt Details Follow Up: prn, Reason: Provider Name:Dick Vlad Trey et, 05/14/2025 10:36:00 AM, [address], [place], [phone], Progress Notes * DANG ARCHEROB:1945 ([age] yo F)Acc No.[id number]:12/25/2023 Progress Notes Patient: SHANIKA FARMER Provider: Dick Sparrow M.D. :1945 A ge:78 Y S ex:Female Date:12/25/2023 Address:[facility] [address], [place], [id number] Subjective: * Chief Complaints: * 1 . [...] * Images: Billing Information: * Visit Code: 43871 Office Visit, Est Pt., Level 3. * Procedure Codes: 42145 PULSE OX. * Electronic signature of Dick Sparrow MD on 05/14/2025 at 11:28 AM EDT Sign off status: Pending * Provider: Dick Sparrow M.D. Date: 0 12/25/2023 Generated for Erick mobley/Debbie/Kavyaitting on: 0 05/14/2025 11:28 AM EDT History and Physical Notes * [...]
--- OUTSIDE RECORDS SUMMARY | 2024-08-23 17:00 | XMS_ITS ---
Author Organization [facility] Address [address] [place] [address] Care Team Providers Care Belt Dresser Name Role Phone Self Referral, Self Primary Care Provider Taylor Velarde Unavailable Migration, Provider Unavailable Unavailable REASON FOR VISIT Multum To Medispan Conversion Encounter Medications Medication SIG (Take, Route, Frequency, Duration) Notes Start Date End Date Status Ibuprofen *Please review a nd pick correct strength-formulation from Medispan options. If intended option is not shown, discontinue and re-order from Quick Search* Active Tylenol *Please review a nd pick correct strength-formulation from Medispan options. If intended option is not shown, discontinue and re-order from Quick Search* Active Meloxicam *Please review a nd pick correct strength-formulation from Medispan options. If intended option is not shown, discontinue and re-order from Quick Search* Active Losartan Potassium 25 MG Tablet 1 tab(s) orally once a day PRN Active Encounters Encounter Location Date Provider Diagnosis [facility] [address] [place] [address] 08/23/2024 Provider Migration Plan Of Treatment No Information Progress Notes * Pasha ARCHEROB:1945 ([age] yo F)Acc No.[id number]:08/23/2024 Patient: Dee Pedraza Provider: Sole montenegro Migration :1945 A ge:79 Y S ex:Female Date:08/23/2024 Address:[address], [id number] Pcp:Self Self Referral Subjective: * Chief Complaints: * M ultum To Medispan Conversion Encounter * Medications: T akingIbuprofen , Notes to Pharmacist: *Please review and pick correct strength-formulation from Medispan options. If intended option is not shown, discontinue and re-order from Quick Search*Tylenol , Notes to Pharmacist: *Please review and pick correct strength-formulation from Medispan options. If intended option is not shown, discontinue and re-order from Quick Search*Meloxicam , Notes to Pharmacist: *Please review and pick correct strength-formulation from Medispan options. If intended option is not shown, discontinue and re-order from Quick Search*Losartan Potassium 25 MG Tablet 1 tab(s) orally once a day , Notes to Pharmacist: PRNTaking Ibuprofen , Notes to Pharmacist: *Please review and pick correct strength-formulation from Medispan options. If intended option is not shown, discontinue and re-order from Quick Search*Taking Tylenol , Notes to Pharmacist: *Please review and pick correct strength-formulation from Medispan options. If intended option is not shown, discontinue and re-order from Quick Search*Taking Meloxicam , Notes to Pharmacist: *Please review and pick correct strength- formulation from Medispan options. If intended option is not shown, discontinue and re-order from Quick Search*Taking Losartan Potassium 25 MG Tablet 1 tab(s) orally once a day , Notes to Pharmacist: PRN * Electronic signature of Tomeka vaughn Migration on 05/14/2025 at 11:29 AM EDT Sign off status: Pending * Provider: Sole montenegro Migration Date: 10/24/2023 Generated for Erick mobley/Debbie/Soledad on: 05/14/2025 11:29 AM EDT
--- OUTSIDE RECORDS SUMMARY | 2025-01-01 10:15 | XMS_ITS ---
Author Organization [facility] Address [address] [place] [id number] Care Team Providers Care Underwriting Internship Name Role Phone Dick Sparrow Primary Care Provider Allergies No Known Allergies Results Component Value Reference Range Notes Echocardiogram Reviewed date:02/08/2025 11:21:25 PM Interpretation: Performing Lab: Notes/Report: Reason For Referral Reason right hip pain; hx o f remote ORIF repair of fx Diagnosis 1 Right hip pain (M25. 551) [facility] Referring Provider First Name Dick Chu Referring Provider Last Name Andrews Referring Provider Speciality Family Natan gilliam Referred Provider Simeon Morales Referred Provider Specialty Orthopedic S urgery General Notes Ana Rashid 2024 09:26:04 AM > 01/07/2025 at 10:15am; patient informed Referral Priority Routine Reason dyspnea on exertion; family hx CHF; ECHO pending Diagnosis 1 Dyspnea on exertion (R06.00) Ref[facility] Referring Provider First Name Dick Chu Referring Provider Last Name Andrews Referring Provider Speciality Family Gama ctice Referred Provider Marcy Pierre Referred Provider Specialty Cardiovascul ar Disease General Notes Ana Rashid 2024 03:41:29 PM > faxed to [facility] CardiologyGay Brynn 01/02/2025 09:31:27 AM > 01/20/2025 at 02:15pm Referral Priority Routine REASON FOR VISIT referral for orthopedic Medications Medication SIG (Take, Route, Frequency, Duration) Notes Start Date End Date Status Losartan Potassium-HCTZ 50-12.5 MG 1 tab(s) orally once a day; Duration: 90 days prn Not-Takin g Problems Problem Type SNOMED Code ICD Code Onset Dates Problem Status W/U Status Risk Notes Problem BMI 36.0-36.9,ad ult (Z68.36) Active confirmed Vital Signs Blood pressure systolic 132 mm Hg 01/02/20 25 Blood pressure diastolic 86 mm Hg 025 Heart Rate 67 /min 01/01/2025 Height 66.50 in 01/01/2025 Weight 232.6 lbs 01/01/2025 BMI 36.98 kg/m2 01/01/2025 Encounters Encounter Location Date Provider Diagnosis [facility] [address] [place] [id number] 01/01/2025 Dick Sparrow Right hip pain M25.551 ; Dyspnea on exertion R06.00 ; HTN (hypertension) I10 and BMI 36.0-36.9,adult Z68.36 Assessments Encounter Date Diagnosis (ICD Code) Assessment Notes Treatment Notes Treatment Clinical Notes Section Notes 01/01/2025 Right hip pain (ICD-10 - M25.551) 01/01/2025 Dyspnea on exertion (ICD-10 - R06.00) 01/01/2025 HTN (hypertension) (ICD-10 - I10) 01/01/2025 BMI 36.0-36.9,adult (ICD-10 - Z68.36) Plan Of Treatment Referrals Referral Date Details 01/01/2025 01/01/2025, right hi p pain; hx of remote ORIF repair of fx , Gene Morales 01/01/2025 01/01/2025, dyspnea on exertion; family hx CHF; ECHO pending , Marcy Pierre Next Appt Details Follow Up: prn, Reason: Provider Name:Dick Michel, 05/14/2025 10:36:00 AM, [address], [address], [place], [id number], Progress Notes * DANG ARCHEROB:1945 ([age] yo F)Acc No.[id number]:01/01/2025 Progress Notes Patient: SHANIKA FARMER Provider: Dick Sparrow M.D. :1945 A ge:79 Y S ex:Female Date:01/01/2025 Address:[address], [id number] Subjective: * Chief Complaints: * 1 . Referral for orthopedic. * HPI: H ip/Thigh: Comes in with complaints of worsening right hip pain for at least a couple of years. She had ORIF of a right hip fracture in 2020. Pain is causing her to limp and it often wakes her at night. She has a sensation of grating in the hip with certain activities. C ardiology: She is requesting cardiology consultation. She has a family history of CHF in her father and 2 brothers. She, personally, has never had any cardiac issues. She was on low-dose blood pressure medication in the past but states she only takes it as needed. For the past 6 months, she has been aware of more dyspnea with exertion. No substernal chest pain or palpitations. She does note occasional swelling. * ROS: D ERMATOLOGY: no R samuel. n o H matthew. G ASTROENTEROLOGY: no V omiting. n o D iarrhea. U ROLOGY: no D ifficulty urinating. n o B lood in urine. * Medical History: H ypertension. * Surgical History: T onsilectomy , Spleenectomy 2001, Total Hysterectomy , LT Hip Replacement , Hernia Repair 11/23/2020, Intramedullary nailing of right hip ela - Dr. Otero/ [facility] 05/2021. * Family History: F ather: 81 yrs, CHF. M other: 97 yrs, old age. 2 brother(s) . 2 son(s) , 1 daughter(s) . . Both brothers with CHF. * Social History: C URRENT TOBACCO USE: No . C affeine: yes, frequency: diet coke. Home smoke detector use: yes. Alcohol: No. * Medications: N ot-Taking Losartan Potassium-HCTZ 50-12.5 MG Tablet 1 tab(s) orally once a day , Notes to Pharmacist: prn, Medication List reviewed and reconciled with the patient * Allergies: N .K.Aneta. Objective: * Vitals: W t: 232.6, Temp: 97.6, BP: 132/86, HR: 67, O2 Sat: 98% on RA, Nurse: romy, Ht: 66.50, BMI:36.98. * Examination: G eneral Examination: General Appearance: N AD. H eart: R SR. L ungs:?clear to auscultation. E xtremities: trace PTE. Assessment: * Assessment: 1. R ight hip pain - M25.551 (Primary) 2 . D yspnea on exertion - R06.00? 3. H TN (hypertension) - I10 4 . B AZ 36.0-36.9,adult - Z68.36 Plan: * Treatment: 2. D yspnea on exertion I maging: Echocardiogram (Performed Date - 01/12/2025) ? Referral To:Marcy Pierre??Cardiovascular Disease ?Reason:dyspnea on exertion; family hx CHF; ECHO pending 3.?HTN (hypertension)?Imaging: Echocardiogram (Performed Date - 01/12/2025)* Ana Rashid 01/01/2025 03:4 2:20 PM > no auth required as MCR is primary; CPT code 67670; faxed to [facility] Scheduling Appt 01/12/25 @ 2:30Dick Sparrow 02/08/2025 11:21:13 PM > reviewed. Referred to cardiology * Procedure Codes: G 2211 Complex e/m visit add on, 3075F SYST BP GE 130 - 139MM HG, 3079F DIAST BP 80-89 MM HG * Follow Up: p rn * Images: Billing Information: * Visit Code: 47805 Office Visit, Est Pt., Level 3. * Procedure Codes: G2211 Complex e/m visit add on. 3075F SYST BP GE 130 - 139MM HG. 3079F DIAST BP 80-89 MM HG. * Electronic signature of Dick Sparrow MD on 05/14/2025 at 11:28 AM EDT Sign off status: Pending * Provider: Dick Sparrow M.D. Date: 0 01/01/2025 Generated for Erick mobley/Debbie/eTransmitting on: 0 05/14/2025 11:28 AM EDT History and Physical Notes * Examination Category Sub-Category Detail Notes Category Not es General Examination Heart: RSR Lungs: clear to auscultatio n Extremities: trace PTE General Appearance: NAD Consultation Request Notes Referral Date Referring Provider Referred Provider Not es 01/01/2025 Dick Sparrow Gene right hip pain; hx of remote ORIF repair of fx 01/01/2025 Dick Sparrow Yaz dyspnea on exertion; family hx CHF; ECHO pending
--- OUTSIDE RECORDS SUMMARY | 2025-05-12 05:30 | XMS_ITS ---
Author Organization [facility] Address [address] [place] [id number] Care Team Providers Care Incident Manager Name Role Phone Dick Sparrow Primary Care Provider MurilloLarisaJoya Unavailable [phone] Allergies No Known Allergies Results Component Value Reference Range Notes CBC Venipuncture (in house) Reviewed date:05/14/2025 10:31:36 AM Interpretation: Performing Lab: Notes/Report: wbc 9.5 3.5 - 10 lymph 26.4% 15 - 50 mid 6.2% 2 - 15 gran 67.4% 35 - 80 rbc 4.35 3.5 - 5.5 hgb 13.6 11.5 - 16.5 hct 40.4 35 - 55 mcv 92.9 75 - 100 mch 31.2 25 - 35 mchc 33.6 31 - 38 platlet 303 100 - 400 P-Comprehensive Metabolic Pa silverio (CMP) Reviewed date:05/14/2025 10:31:11 AM Interpretation:Normal Performing Lab: Notes/Report: Test performed by [facility] [address] [place] [address] , [address], [place] [address] Kamlesh Cruz MD, Clinical Courier CLIA: [id number] Sodium 143 135-145 mmol/L Potassium 3.8 3.5-5.3 mmol/L Chloride 102 97-108 mmol/L CO2 27 20-32 mmol/L Glucose 93 65-99 mg/dL BUN 8 8-23 mg/dL Creatinine 0.74 0.50-1.00 mg/dL Calcium 10.0 8.6-10.4 mg/dL eGFR by Creatinine 82 >59 mL/min/1.73m2 Protein 7.0 6.0-8.3 g/dL Albumin 4.1 3.5-5.3 g/dL Alkaline Phosphatase 75 35-121 IU/L ALT (SGPT) 14 <5-47 IU/L AST (SGOT) 16 <5-40 IU/L Bilirubin, Total 0.6 <0.2-1.2 mg/dL A/G Ratio 1.4 1.1-2.5 P-Arthritis Panel, [facility] Reviewed date:05/14/2025 10:39:42 AM Interpretation:RA and SUAD negative Performing Lab: Notes/Report: Test performed by [facility] [address] [place], [place] [address] [place] , [address], [place] [address] Kamlesh Cruz MD, Clinical Courier CLIA: [id number] Erythrocyte Sedimentation Rate (ESR), Automated 39 <31 mm/hr Rheumatoid Factor <10 <14.1 IU/mL C-Reactive Protein (CRP) 0.68 <0.50 mg/dL Antinuclear Antibodies (SUAD) Screen, Reflex SUAD 9 Panel Negative Negative This test is performed by Multiplex Bead Immunoassay methodology. Antinuclear Antibodies (SUAD) Result Note SEE COMMENT For positive Autoantibodies, please refer to the interpretive chart here: [email or web address] CCP Antibodies <0.5 <0.5-3.0 U/mL P-Uric Acid Reviewed date:05/14/2025 10:32:07 AM Interpretation:5.7 Performing Lab: Notes/Report: Test performed by [facility] [address] [place] [address] , [address], [place] [address] Kamlesh Cruz MD, Clinical Courier CLIA: [id number] Uric Acid 5.7 2.4-7.0 mg/dL REASON FOR VISIT Annual Wellness visit-Medicare Medications Medication SIG (Take, Route, Frequency, Duration) Notes Start Date End Date Status Losartan Potassium-HCTZ 50-12.5 MG Take 1 tablet by mouth once daily; Duration: 90 days Active Zepbound 2.5 MG/0.5ML 0.5 mL Subcutaneou s; Duration: 30 day(s) pt has BMI 38+ , asthma with SOB and heart disease 05/12/2025 Active Problems Problem Type SNOMED Code ICD Code Onset Dates Problem Status W/U Status Risk Notes Problem Obese class II ([id number]) BMI 38.0-38.9,vivek lt (Z68.38) Active confirmed Problem Morbid obesity (E66.01) Active confirmed Vital Signs Weight 241.2 lbs 05/12/2025 Blood pressure systolic 148 mm Hg 05/12/20 25 Blood pressure diastolic 100 mm Hg 025 Heart Rate 66 /min 05/12/2025 Height 66.50 in 05/12/2025 BMI 38.34 kg/m2 05/12/2025 Encounters Encounter Location Date Provider Diagnosis [facility] [address] [facility] [address] [place] [id number] 05/12/2025 Joya Murillo Right hip pain M25.5 51 ; Adult general medical exam Z00.00 ; Dyspnea on exertion R06.00 ; HTN (hypertension) I10 ; BMI 38.0-38.9,adult Z68.38 ; Hyperlipidemia E78.5 ; Osteoporosis M81.0 and Morbid obesity E66.01 Assessments Encounter Date Diagnosis (ICD Code) Assessment Notes Treatment Notes Treatment Clinical Notes Section Notes 05/12/2025 Right hip pain (ICD-10 - M25.551) will refer to [facility] as pt requests 05/12/2025 Adult general medical exam (ICD-10 - Z00.00) 05/12/2025 Dyspnea on exertion (ICD-10 - R06.00) 05/12/2025 HTN (hypertension) (ICD-10 - I10) 05/12/2025 BMI 38.0-38.9,adult (ICD-10 - Z68.38) discussed chair exercise; food eating control measures 05/12/2025 Hyperlipidemia (ICD-10 - E78.5) 05/12/2025 Osteoporosis (ICD-10 - M81.0) 05/12/2025 Morbid obesity (ICD-10 - E66.01) Plan Of Treatment Medication Medication Name Sig Start Date Stop Date Notes Losartan Potassium-HCTZ 50-12.5 MG Take 1 tablet by mouth once daily; Duration: 90 days Zepbound 2.5 MG/0.5ML 0.5 mL Subcutaneou s; Duration: 30 day(s) 05/12/2025 pt has BMI 38+ , asthma with SOB and heart disease Treatment Notes Assessment Notes Right hip pain will refer to [facility] as pt requests BMI 38.0-38.9,adult discussed chair exer cise; food eating control measures Next Appt Details Follow Up: 4 weeks after sta rting weight loss med, Reason: Provider Name:Dick Michel, 05/14/2025 10:36:00 AM, [address], [address], [place], [place], [id number], Progress Notes * DANG ARCHEROB:1945 ([age] yo F)Acc No.[id number]:05/12/2025 Annual Wellness Visit Patient: SHANIKA FARMER Provider: RADHA Mccarthy :1945 A ge:80 Y S ex:Female Date:05/12/2025 Address:[facility] [address], [facility], [id number] Pcp:Dick Sparrow Subjective: * Chief Complaints: * 1 . Annual Wellness visit-Medicare. * HPI: H PI: Patient is here today for P atient is here today for a Medicare Annual Wellness Visit. Pt states she is doing good and denies any new concerns. Pt is fasting.? H ip/Thigh: walks outside with a cane for stability; requests referral to [facility] for arthritis. c/o hip pain r ight hip/thigh; injections of hip and knee not helpful; does not go to the pain clinic any more; . * ROS: R ESPIRATORY: Positive for h as seen Dr. Mack for Sob; he feels she may have asthma. S hortness of breath y es, e xertional. C ough y es, s ometime; in car , in evenings and in AM upon arrising. C ARDIOLOGY: Positive for f dls with cardiology for heart issues.?no C hest pain. n o P alpitations. n o L eg edema, o n and off. S hortness of breath y es. D ERMATOLOGY: no R samuel. n o H matthew. G ASTROENTEROLOGY: no N ausea. H eartburn y es, r olaids help.?no V omiting. n o D iarrhea. O PTHALMOLOGY: Negative for d enies vision issues. U ROLOGY: no D ifficulty urinating. n o B lood in urine. * Medical History: H ypertension, Right femur fracture 2020, pelvic Fx- 2012. * Surgical History: T onsilectomy , Spleenectomy 2001, Total Hysterectomy , LT Hip Replacement , Hernia Repair 11/23/2020, Intramedullary nailing of right hip fx - Dr. Otero/ [facility] 05/2021. * Hospitalization/Major Diagno stic Procedure: C karyn Bahai; surgery for Fx right hip 05/17-05/19/1021, [facility] with several pelvic Fx 03/15-03/21/2013. * Family History: F ather: 81 yrs, CHF. M other: 97 yrs, old age. 2 brother(s) . 2 son(s) , 1 daughter(s) . . Both brothers with CHF. * Social History: C URRENT TOBACCO USE: No . C affeine: yes, frequency: diet coke. Home smoke detector use: yes. Alcohol: No. * Medications: T aking Losartan Potassium-HCTZ 50-12.5 MG Tablet Take 1 tablet by mouth once daily , Medication List reviewed and reconciled with the patient * Allergies: N .K.D.A. Objective: * Vitals: W t: 241.2, Temp: 97.9, BP: 148/100, HR: 66, O2 Sat: 99% on RA, Nurse: DOLLY, Ht: 66.50, BMI:38.34. * Examination: G eneral Examination: General Appearance: N AD, appears healthy, alert, well nourished and hydrated; presents with assistance from a cane. H EENT: s clera and conjunctiva clear, PERRLA, TM's normal, translucent. O ral cavity: m ucosa moist and WNL, no erythema. Neck: s upple, no lymphadenopathy, no carotid bruits, thyroid normal. H eart: R RR.?Lungs: C TAB A&P. N eurologic Exam: a lert and oriented; good cognition. E xtremities: b ilateral leg edema. L ABS: date of labs . T otal Cholesterol 2 50.?Triglyceride 1 61. L DL 1 41.65. H DL 6 2. T SH 3 .92. T 4 1 .29. * Physical Examination: G ENERAL: Pain Assessment: P ain level:5-6 , on a scale of 0-10 (with 10 being extreme pain); pain is due mostly to the right hip . F unctional Status Assessment: P atient response to question of how often physical health interferes with daily activities: .frequently Able to perform ADLs-including meal preparation, grocery shopping, housework, laundry, taking medications or handling finances. Cognitive Status: alert and oriented. Ambulation Status: Fully ambulatory. F all Risk Assessment: I ndependant in ambulation, adequate lighting in home. Patient has NOT fallen or had trouble walking within the past 12 months. D epression Screening: D enies depressed mood or anxiety. Describes emotional health as:positive and upbeat. B ladder Control Screening: I s a small problem. Assessment: * Assessment: 1. A dult general medical exam - Z00.00 (Primary) 2 . R ight hip pain - M25.551 3 . D yspnea on exertion - R06.00 4 . H TN (hypertension) - I10 5 . B SC 38.0-38.9,adult - Z68.38 6 . H yperlipidemia - E78.5 7 . O steoporosis - M81.0 8 . M orbid obesity - E66.01 Plan: * Treatment: Value Reference Range A ntinuclear Antibodies (SUAD) Result Note SEE COMMENT - * A ntinuclear Antibodies (SUAD) Screen, Reflex SUAD 9 Panel Negative Negative - * C CP Antibodies <0.5 <0.5-3.0 - U/mL * C -Reactive Protein (CRP) 0.68 H <0.50 - mg/dL * E rythrocyte Sedimentation Rate (ESR), Automated 39 H <31 - mm/hr * R heumatoid Factor <10 <14.1 - IU/mL * Joya Murillo 05/14/2025 10:32:15 AM EDT >I spoke with pt and reported resultsJoya Murillo 05/14/2025 10:39:31 AM EDT >see encounter ?LAB: P-Uric Acid (Collection Date & Time - 05/12/2025 09:30 AM)?5.7* Value Reference Range U irina Acid 5.7 2.4-7.0 - mg/dL * Joya Murillo 05/14/2025 10:31:45 AM EDT >I spoke with pt and reported results Notes: will refer to [facility] as pt requests??2.?Dyspnea on exertion?LAB: P-Arthritis Panel, [facility] (Collection Date & Time - 05/12/2025 09:30 AM)?RA and SUAD negative* Value Reference Range A ntinuclear Antibodies (SUAD) Result Note SEE COMMENT - * A ntinuclear Antibodies (SUAD) Screen, Reflex SUAD 9 Panel Negative Negative - * C CP Antibodies <0.5 <0.5-3.0 - U/mL * C -Reactive Protein (CRP) 0.68 H <0.50 - mg/dL * E rythrocyte Sedimentation Rate (ESR), Automated 39 H <31 - mm/hr * R heumatoid Factor <10 <14.1 - IU/mL * Joya Murillo 05/14/2025 10:32:15 AM EDT >I spoke with pt and reported resultsJoya Murillo 05/14/2025 10:39:31 AM EDT >see encounter ?LAB: P-Uric Acid (Collection Date & Time - 05/12/2025 09:30 AM)?5.7* Value Reference Range U irina Acid 5.7 2.4-7.0 - mg/dL * Joya Murillo 05/14/2025 10:31:45 AM EDT >I spoke with pt and reported results 3.?HTN (hypertension)? Refill Losartan Potassium-HCTZ Tablet, 50-12.5 MG, Take 1 tablet by mouth once daily, 90 days, 90 Tablet, Refills 1.?LAB: P-Comprehensive Metabolic Panel (CMP) (Collection Date & Time - 05/12/2025 09:30 AM)?Normal* Value Reference Range A /G Ratio 1.4 1.1-2.5 - * A lbumin 4.1 3.5-5.3 - g/dL * A lkaline Phosphatase 75 35-121 - IU/L * A LT (SGPT) 14 <5-47 - IU/L * A ST (SGOT) 16 <5-40 - IU/L * B ilirubin, Total 0.6 <0.2-1.2 - mg/dL * B UN 8 8-23 - mg/dL * C alcium 10.0 8.6-10.4 - mg/dL * C hloride 102 97-108 - mmol/L * C O2 27 20-32 - mmol/L * C reatinine 0.74 0.50-1.00 - mg/dL * G lucose 93 65-99 - mg/dL * P otassium 3.8 3.5-5.3 - mmol/L * S odium 143 135-145 - mmol/L * P rotein 7.0 6.0-8.3 - g/dL * e GFR by Creatinine 82 >59 - mL/min/1.73m2 * Joya Murillo 05/14/2025 10:30:49 AM EDT >I spoke with pt and reported results ?LAB: P-Arthritis Panel, [facility] (Collection Date & Time - 05/12/2025 09:30 AM)?RA and SUAD negative* Value Reference Range A ntinuclear Antibodies (SUAD) Result Note SEE COMMENT - * A ntinuclear Antibodies (SUAD) Screen, Reflex SUAD 9 Panel Negative Negative - * C CP Antibodies <0.5 <0.5-3.0 - U/mL * C -Reactive Protein (CRP) 0.68 H <0.50 - mg/dL * E rythrocyte Sedimentation Rate (ESR), Automated 39 H <31 - mm/hr * R heumatoid Factor <10 <14.1 - IU/mL * Joya Murillo 05/14/2025 10:32:15 AM EDT >I spoke with pt and reported resultsJoya Murillo 05/14/2025 10:39:31 AM EDT >see encounter ?LAB: P-Uric Acid (Collection Date & Time - 05/12/2025 09:30 AM)?5.7* Value Reference Range U irina Acid 5.7 2.4-7.0 - mg/dL * Joya Murillo 05/14/2025 10:31:45 AM EDT >I spoke with pt and reported results ?LAB: CBC Venipuncture (in house) (Collection Date & Time - 05/12/2025)* Value Reference Range w bc 9.5 3.5 - 10 * l ymph 26.4% 15 - 50 * m id 6.2% 2 - 15 * g ran 67.4% 35 - 80 * r bc 4.35 3.5 - 5.5 * h gb 13.6 11.5 - 16.5 * h ct 40.4 35 - 55 * m cv 92.9 75 - 100 * m ch 31.2 25 - 35 * m chc 33.6 31 - 38 * p latlet 303 100 - 400 * Izabel Iqbal 05/12/2025 10 :51:21 AM EDT >Joya Murillo 05/14/2025 10:31:21 AM EDT >I spoke with pt and reported results 4.?BMI 38.0-38.9,adult? Start Zepbound Solution Auto-injector, 2.5 MG/0.5ML, 0.5 mL, Subcutaneous, 30 day(s), 2, Notes to Pharmacist: pt has BMI 38+ , asthma with SOB and heart disease.?? Notes: discussed chair exercise; food eating control measures?? * Procedure Codes: G 0439 ANNUAL WELLNESS VST; PPS SUBSQT VST, G2211 Complex e/m visit add on, 1090F PRES/ABSN URINE INCON ASSESS, 3288F FALL RISK ASSESSMENT DOCD, 1170F FXNL STATUS ASSESSED, 1159F MED LIST DOCD IN RCRD, 1003F LEVEL OF ACTIVITY ASSESS, 41272 CBC WITH AUTO DIFF, 1036F TOBACCO NON-USER, 3017F COLORECTAL CA SCREEN DOC REV, G8399 PT W/DXA DOCUMENT OR ORDER, 1125F AMNT PAIN NOTED PAIN PRSNT, G8510 NEG SCR Depression PT NOT ELIG F/U/PLN DOC, G8050 PREHTN/HTN BP DOC INDCD F/U DOC, G8753 MOST RECENT SYSTOLIC BP >= 140MM HG, G8755 MOST RECENT DIASTOLIC BP >= 90MM HG * Preventive Medicine: Counseling: E motional health: P atient encouraged to try connecting with family or friends to boost mood. B ladder control: M ethods of controlling or managing leakage of urine discussed. E xercise: P atient advised to start, increase or maintain level of exercise/physical activity. I njury prevention: F all prevention discussed. Discussed need for cane/walker. Potential trip hazards discussed. Immunizations: T etanus s uggested. P neumococcal r ecommended; she declines. I nfluenza r ecommended seasonally. Screening / Special Tests: M ammogram R ecent history: 04/12/2020, negative, recommended today; she will consider. C olonoscopy R ecent history: 05/25/2023, Dr. Suazo, diverticulosis, hemorrhoids, no further colon cancer screenings recommended. B one mineral Density?Recent history: 04/12/2020, osteoporosis, recommended; she will consider. D iabetic Retinal Eye Exam h as annual eye exam. s uggested Shingrix. * Follow Up: 4 weeks after starting weight loss med * Images: Drawin05/12/[address] [facility] Billing Information: * Visit Code: 51175 Office Visit, Est Pt., Level 3. Modifiers: 25 * Procedure Codes: G0439 ANNUAL WELLNESS VST; PPS SUBSQT VST. G2211 Complex e/m visit add on. 1090F PRES/ABSN URINE INCON ASSESS. 3288F FALL RISK ASSESSMENT DOCD. 1170F FXNL STATUS ASSESSED. 1159F MED LIST DOCD IN RCRD. 1003F LEVEL OF ACTIVITY ASSESS. 92273 CBC WITH AUTO DIFF. 1036F TOBACCO NON-USER. 3017F COLORECTAL CA SCREEN DOC REV. G8399 PT W/DXA DOCUMENT OR ORDER. 1125F AMNT PAIN NOTED PAIN PRSNT. G8510 NEG SCR Depression PT NOT ELIG F/U/PLN DOC. G8950 PREHTN/HTN BP DOC INDCD F/U DOC. G8753 MOST RECENT SYSTOLIC BP >= 140MM HG. G8755 MOST RECENT DIASTOLIC BP >= 90MM HG. * Electronic signature of Amarilis Murillo APRN on 05/14/2025 at 11:28 AM EDT Sign off status: Pending * Provider: RADHA Mccarthy Date: 0 05/12/2025 Generated for Erick mobley/Debbie/Soledad on: 05/14/2025 11:28 AM EDT History and Physical Notes * HPI (History of Present Illness) Category Sub-Category Detail Notes Category Not es Hip/Thigh hip pain right hip/thigh; injections of hip and knee not helpful; does not go to the pain clinic any more; HPI Patient is here today for Patien t is here today for a Medicare Annual Wellness Visit. Pt states she is doing good and denies any new concerns. Pt is fasting Physical Examination Category Sub-Category Detail Notes Section Note s GENERAL Pain Assessment: Pain level:5-6 , on a scale of 0-10 (with 10 being extreme pain); pain is due mostly to the right hip Functional Status Assessment: Patient re sponse to question of how often physical health interferes with daily activities: .frequentlyAble to perform ADLs-including meal preparation, grocery shopping, housework, laundry, taking medications or handling finances.Cognitive Status: alert and oriented.Ambulation Status: Fully ambulatory Fall Risk Assessment: Independant in amb ulation, adequate lighting in home. Patient has NOT fallen or had trouble walking within the past 12 months Depression Screening: Denies depressed m ood or anxiety. Describes emotional health as:positive and upbeat Bladder Control Screening: Is a small pr oblem Examination Category Sub-Category Detail Notes Category Not es General Examination HEENT: sclera and c onjunctiva clear, PERRLA, TM's normal, translucent Heart: RRR Lungs: CTAB A&P Extremities: bilateral leg edema General Appearance: NAD, appears healthy , alert, well nourished and hydrated; presents with assistance from a cane Neurologic Exam: alert and oriented; good cognition Neck: supple, no lymphaden opathy, no carotid bruits, thyroid normal Oral cavity: mucosa moist and WNL , no erythema LABS LDL 141.65 HDL 62 Total Cholesterol 250 TSH 3.92 Triglyceride 161 date of labs 01/20/2025 T4 1.29
--- OUTSIDE RECORDS SUMMARY | 2025-05-14 11:28 | XMS_ITS | Encounter Summary ---
[facility] Address [address] [place] [address] Care Team Providers Care Commercial Shrimping Captain Name Role Phone Phu Sparrow MD Primary Care Provider Encounter Details Date Type Department Care Team (Late st Contact Info) Description 10/17/2016 External CPT II MEDICAL OFFICE REPRESENTATIVE - [facility] Social History Tobacco Use Types Packs/Day Years Used Date Smoking Tobacco: Never Smokeless Tobacco: Never Alcohol Use Standard Drinks/Week Comments No 0 (1 standard drink = 0.6 oz pur e alcohol) Comments No Sex and Gender Information Value Date Recorded Sex Assigned at Not on file Legal Sex Female 10:50 AM EDT Gender Identity Not on file Sexual Orientation Not on file Occupation Industry Job Start Date Job End Date retired Not on file Not on file Not on file documented as of this encounter Plan of Treatment Not on file documented as of this encounter Visit Diagnoses Not on filedocumented in this encounter Additional Health Concerns Infection Onset Date Last Indicated Resolved Time COVID Screen (preop/placement) 05/17/2021 05/17/2021 05/17/2021 8:28 PM EDT documented as of this encounter Care Teams Commercial Shrimping Captain Relationship Specialty Start Date End Date Phu Sparrow MD [address] [place] [address] [place] [id number] PCP - General Family Medicine 05/17/21 documented as of this encounter
--- OUTSIDE RECORDS SUMMARY | 2025-05-14 11:28 | XMS_ITS | Encounter Summary ---
[facility] Address [address] [place] [id number] Care Team Providers Care Mortgage Field Inspector Name Role Phone Phu Sparrow MD Primary Care Provider Encounter Details Date Type Department Care Team (Late st Contact Info) Description 10/23/2017 External CPT II RING MAKER - [facility] Social History Tobacco Use [...] documented as of this encounter Care Teams Mortgage Field Inspector Relationship Specialty Start Date End Date Phu Sparrow MD [address] [place] [address] [place] [id number] PCP - General Family Medicine 05/17/21 documented as of this encounter
--- OUTSIDE RECORDS SUMMARY | 2025-05-14 11:28 | XMS_ITS | Clinical Summary ---
Author Organization [facility] Address [address] [id number] Care Team Providers Care Dance Historian Name Role Phone Phu Sparrow MD Primary Care Provider [phone] Allergies No known active allergies Medications losartan (Cozaar) 50 MG tablet 12/27/2020 Active aspirin 81 MG EC tablet Take 81 mg by mouth 1 (one) time each day. 06/18/2021 Active Active Problems No known active problems Social History Tobacco Use Types Packs/Day Years Used Date Smoking Tobacco: Never Smokeless Tobacco: Never Comments Unknown Sex and Gender Information Value Date Recorded Sex Assigned at Not on file Legal Sex Female 8:50 AM EDT Gender Identity Not on file Sexual Orientation Not on file Last Filed Vital Signs Vital Sign Reading Time Taken Comments Blood Pressure 168/86 03/15/2022 9:09 AM EDT Pulse 69 03/15/2022 9:09 AM EDT Temperature 36.7 C (98 F) 03/15/2022 9:09 AM EDT Respiratory Rate - - Oxygen Saturation 98% 03/15/2022 9:09 AM EDT Inhaled Oxygen Concentration - - Weight 104 kg (230 lb) 03/15/2022 9:09 AM EDT Height 172.7 cm (5' 8 ) 03/15/2022 9:09 AM EDT Body Mass Index 34.97 03/15/2022 9:09 AM EDT Plan of Treatment Health Maintenance Due Date Last Done Comments [facility]-Bone Density Scan 1945 [facility]-Depression Screening 1945 [facility]-Infant/Child/Adol SDOH Screenings 1945 [facility]- SDOH Screenings 1964 [facility]-Adult SDOH Screenings 1964 [facility]-DTaP,Tdap,and Td Vaccine s (1 - Tdap) 1965 [facility]-Pneumococcal Vaccine: 50 + Years (1 of 1 - PCV) 1996 [facility]-Zoster Vaccines (1 of 2) 1996 [facility]-RSV Vaccine: 60+ Years o r (1 - 1-dose 75+ series) 2021 [id number] Vaccine (1 - 2023- season) 2024 [facility]-Influenza Vaccine (#1) 2025 [facility]-Diabetes: Hemoglobin A1C Discontinued 05/18/2021 HPV Vaccines Aged Out No longer eligi ble based on patient's age to complete this topic [facility]-HIB Vaccines Aged Out No longer e ligible based on patient's age to complete this topic [facility]-Hepatitis A Vaccines Aged Out No longer eligible based on patient's age to complete this topic [facility]-IPV Vaccines Aged Out No longer e ligible based on patient's age to complete this topic [facility]-Rotavirus Vaccines Aged Out No lo nger eligible based on patient's age to complete this topic Insurance MEDICARE AETNA Care Teams Dance Historian Relationship Specialty Start Date End Date Phu Sparrow MD [address] [place] [id number] PCP - General 12/02/21
--- OUTSIDE RECORDS SUMMARY | 2025-05-14 11:28 | XMS_ITS | Clinical Summary ---
[facility] Address [address] [place] [address] Care Team Providers Care Group Therapy Counselor Name Role Phone Phu Sparrow MD Primary Care Provider Allergies No known active allergies Medications furosemide (LASIX) 40 MG tablet Take 1 tablet by mouth daily. 30 tablet 5 02/07/2016 Active losartan-hydroc hlorothiazide (HYZAAR) 50-12.5 MG per tablet Take 1 tablet by mouth daily. 90 tablet 3 06/09/2016 Active aspirin 81 MG EC tablet Take 1 tablet by mouth Daily. 06/18/2021 Active acetaminophen (TYLENOL) 500 MG tablet Take 2 tablets by mouth Every 8 (Eight) Hours. 05/19/2021 Active baclofen (LIORESAL) 10 MG tablet Take 0.5 tablets by mouth 3 (Three) Times a Day As Needed (spams). 15 tablet 05/19/2021 1:11 PM EDT 05/19/2021 Active traMADol (ULTRAM) 50 MG tablet Take 1 tablet by mouth Every 4 (Four) Hours As Needed for Moderate Pain . 40 tablet 05/26/2021 Active Active Problems Problem Noted Date Diagnosed Date Fall 05/17/2021 Arthritis of left hip 07/10/2016 Status post total replacement of left hip 2015 Essential hypertension, benign 05/05/2016 Edema 05/05/2016 Adnexal mass 03/15/2016 History of fractured pelvis 09/17/2012 BMI 36.0-36.9,adult Resolved Problems Problem Noted Date Diagnosed Date Resolved Date Hip fracture 05/17/2021 05/19/2021 Leukocytosis 05/17/2021 05/19/2021 Closed fracture of right hip 05/17/2021 05/19/2021 Family History Medical History Relation Name Comments Heart failure Father CHF Melanoma Father Hypothyroidism Mother Relation Name Status Comments Father (Age 81) Mother (Age 97) Social History Tobacco Use Types Packs/Day Years Used Date Smoking Tobacco: Never Smokeless Tobacco: Never Alcohol Use Standard Drinks/Week Comments Never 0 (1 standard drink = 0.6 oz pur e alcohol) AUDIT-C Answer Date Recorded Q1: How often do you have a drink containing alc ohol? Never 05/17/2021 Average Number of Drinks Not on file 021 Frequency of Binge Drinking Not on file 04/19 Abuse Screen Answer Date Recorded Unsafe at Home or Work/School Not on file Feels Threatened by Someone? Not on file 05/2023 Does Anyone Keep You from Co ntacting Others or Doint Things Outside the Home? Not on file 06/25/2023 Physical Sign of Abuse Present Not on file 1 Housing Stability Answer Date Recorded Current Living Arrangements Not on file 05/2023 Potentially Unsafe Housing Conditions Not on tulio e 06/25/2023 Family and Community Support Answer Gus e Recorded Help with Day-to-Day Activities Not on file 06/25/2023 Lonely or Isolated Not on file 06/25/2023 Employment Answer Date Recorded Do you want help finding or keeping work or a michelle b? Not on file 06/25/2023 Disabilities Answer Date Recorded Concentrating, Remembering, or Making Decisions Difficulty Not on file 06/25/2023 Doing Errands Independently Difficulty Not on fi le 06/25/2023 Education Answer Date Recorded Help with school or training? Not on file Preferred Language Not on file 06/25/2023 Comments No Sex and Gender Information Value Date Recorded Sex Assigned at Not on file Legal Sex Female 10:50 AM EDT Gender Identity Not on file Sexual Orientation Not on file Occupation Industry Job Start Date Job End Date retired Not on file Not on file Not on file Last Filed Vital Signs Vital Sign Reading Time Taken Comments Blood Pressure 135/85 12/01/2021 11:25 AM EDT Pulse 70 06/14/2021 9:46 AM EDT Temperature 36.7 C (98.1 F) 06/14/2021 9:46 AM EDT Respiratory Rate 16 06/14/2021 9:46 AM EDT Oxygen Saturation 95% 06/14/2021 9:46 AM EDT Inhaled Oxygen Concentration - - Weight 103 kg (227 lb 12.8 oz) 12/01/2021 11:25 AM EDT Height 172.7 cm (5' 7.99 ) 12/01/2021 11:25 AM E DT Body Mass Index 34.65 12/01/2021 11:25 AM EDT Plan of Treatment Health Maintenance Due Date Last Done Comments TDAP/TD VACCINES (1 - Tdap) 1965 COLOGUARD 1991 COLON CANCER SCREENING [address] COLONOGRAPHY 1991 FECAL OCCULT BLOOD TEST 1991 FIT Testing (1 year) 1991 Pneumococcal Vaccine 50+ (1 of 1 - PCV) 1996 ZOSTER VACCINE (1 of 2) 1996 ANNUAL PHYSICAL 02/07/2016 HEPATITIS C SCREENING 02/07/2016 DXA SCAN 03/05/2019 03/05/2017 RSV Vaccine - Adults (1 - 1-dose 75+ series) COVID-19 Vaccine ( - season) 2024 INFLUENZA VACCINE 06/17/2025 COLONOSCOPY 04/15/2028 04/15/2018 COLORECTAL CANCER SCREENING 04/15/2028 MAMMOGRAM Discontinued 03/05/2017 Medical Devices Implanted Type Area Assistant Professor Of History Device Identifier Shelf Expiration Date Model / Serial / Lot Cup Acet Pinn Sector W Griptn 54mm - [id number] Implanted:Qt y: 1 on 07/10/2016 by David Potts MD at [facility] Implant Left: Acetabulum DEPUY 03/16/2026 [id number] / / [id number] Scrw Canc Pinn 6.5x25mm - [id number] Implanted:Qt y: 1 on 07/10/2016 by David Potts MD at [facility] Implant Left: Acetabulum DEPUY 04/16/2026 [id number] / / [id number] Liner Acet Altrx Pinn Ntrl 21q63uz - [id number] Implanted:Qt y: 1 on 07/10/2016 by David Potts MD at [facility] Implant Left: Acetabulum DEPUY 04/16/2021 [id number] / / [id number] Scrw Canc Pinn 6.5x20mm - [id number] Implanted:Qt y: 1 on 07/10/2016 by David Potts MD at [facility] Implant Left: Acetabulum DEPUY 01/14/2026 [id number] / / [id number] Stem Fem Corail Cmtls W/Col Amt Sz14 - [id number] Implanted:Qt y: 1 on 07/10/2016 by David Potts MD at [facility] Implant Left: Acetabulum DEPUY 03/16/2021 [id number] / / [id number] Hd Fem Ultamet/Art M/Cocr 08/30 36mm Pls1.5 - [id number] Implanted:Qt y: 1 on 07/10/2016 by David Potts MD at [facility] Implant Left: Acetabulum DEPUY 01/14/2021 [id number] / / [id number] Totl Hip Moa Depuy - [id number] Implanted:Qt y: 1 on 07/10/2016 by David Potts MD at [facility] Implant Left: Acetabulum DEPUY CAPHIPTOTAL DEP5 / / Kwire 3.3v644as Ns Strl - [id number] Implanted:Qt y: 1 on 05/18/2021 by Jim Otero MD at [facility] Implant Right: Hip WERO ASHWINI [id number] 02/14/2026 [id number] S / / [id number] Scrw Lag Gam3 Ti 10.1t759vp Strl - [id number] Implanted:Qt y: 1 on 05/18/2021 by Jim Otero MD at [facility] Implant Right: Hip WERO ASHWINI [id number] 01/14/2026 [id number] / / [id number] Scrw Lk Ful/Thrd 5x37mm Strl - [id number] Implanted:Qt y: 1 on 05/18/2021 by Jim Otero MD at [facility] Implant Right: Hip WERO ASHWINI [id number] 11/14/2025 [id number] S / / [id number] Nail Fem Herminio/180kt Ti 130d [id number] Strl - [id number] Implanted:Qt y: 1 on 05/18/2021 by Jim Otero MD at [facility] Implant Right: Hip WERO ASHWINI [id number] 01/14/2026 [id number] S / / [id number] Kwire 3.1g952lv Ns Strl - [id number] Implanted:Qt y: 1 on 05/18/2021 by Jim Otero MD at [facility] Implant Right: Hip WERO ASHWINI 01/14/2026 [id number] / / [id number] Insurance MEDICARE A & B Member Subscriber Plan / Payer (Ef fective 2011-Present) Name:Dee Dorantes Member ID:[id number] Relation to Subscriber:Self Name:Dee Dorantes Subscriber ID:[id number] Payer ID:[id number] Group ID:Not on file Type:Not on file Address: [facility] [address] [place] [id number] [facility] Advance Directives * CPR (Attempt to Resuscitate) (Latest Code Status on File) Date Activated Date Inactivated Comments 05/17/2021 10:37 PM 05/19/2021 8:16 PM Question Answer Comments Code Status (Patient has no pulse and is not breathing): CPR (Attempt to Resuscitate) Medical Interventions (Patie nt has pulse or is breathing): Full * Full Code Date Activated Date Inactivated Comments 07/10/2016 2:19 PM 07/11/2016 5:58 PM Question Answer Comments Level Of Support Discussed With: Patient * Full Code Date Activated Date Inactivated Comments 04/18/2016 1:43 PM 04/18/2016 9:39 PM Care Teams Group Therapy Counselor Relationship Specialty Start Date End Date Phu Sparrow MD [facility] [address] [facility] [address] [place] [address] PCP - General Family Medicine 05/17/21
--- OUTSIDE RECORDS SUMMARY | 2025-05-14 11:29 | XMS_ITS | Encounter Summary ---
Author Organization [facility] Address [address] [place] [phone] Care Team Providers Care Pathology Teacher Name Role Phone Phu Sparrow MD Primary Care Provider Encounter Details Date Type Department Care Team (Late st Contact Info) Description 10/29/2018 External CPT II BAND LOG MILL AND CARRIAGE OPERATOR - [facility] Social History Tobacco Use [...] documented as of this encounter Care Teams Pathology Teacher Relationship Specialty Start Date End Date Phu Sparrow MD [address] [place] [address] [place] [id number] PCP - General Family Medicine 05/17/21 documented as of this encounter
--- OUTSIDE RECORDS SUMMARY | 2025-05-14 11:29 | XMS_ITS | Patient Health Record ---
Author Organization [facility] Address [address] [place] [id number] Care Team Providers Care Pigment Making Supervisor Name Role Phone Dick Sparrow Primary Care Provider [phone] Joya Murillo Unavailable [phone] Allergies No Known Allergies Results Component Value Reference Range Notes Echocardiogram Reviewed date:02/08/2025 11:21:25 PM Interpretation: Performing Lab: Notes/Report: CBC Venipuncture (in house) Reviewed date:05/14/2025 10:31:36 [...] Interpretation:Normal Performing Lab: Notes/Report: Test performed by [facility], [facility] , [address], [place] [address] Kamlesh Cruz MD, Tow Motor Driver CLIA: [id number] Sodium 143 135-145 mmol/L Potassium 3.8 3.5-5.3 [...] negative Performing Lab: Notes/Report: Test performed by [facility] [address] [place], [place] [email or web address] [address] , [address], [place] [address] Kamlesh Cruz MD, Tow Motor Driver CLIA: [id number] Erythrocyte Sedimentation Rate (ESR), Automated 39 <31 mm/hr Rheumatoid Factor <10 <14.1 IU/mL C-Reactive Protein (CRP) 0.68 <0.50 mg/dL Antinuclear Antibodies (SUAD) Screen, Reflex SUAD 9 Panel Negative Negative This test is performed by Multiplex Bead Immunoassay methodology. Antinuclear Antibodies (SUAD) Result Note SEE COMMENT For positive Autoantibodies, please refer to the interpretive chart here: [email or web address] [email or web address] CCP Antibodies <0.5 <0.5-3.0 U/mL P-Uric Acid Reviewed date:05/14/2025 10:32:07 AM Interpretation:5.7 Performing Lab: Notes/Report: Test performed by [facility] [address] [place], [place] [email or web address] [address] , [address], [place] [address] Kamlesh Cruz MD, Tow Motor Driver CLIA: [id number] Uric Acid 5.7 2.4-7.0 mg/dL Reason For Referral Reason right hip pain; hx o f remote ORIF repair of fx Diagnosis 1 Right hip pain (M25. 551) Referral Organization [facility] Referring Provider First Name Dick Chu Referring Provider Last Name Andrews Referring Provider Speciality Family Pra ctice Referred Provider Simeon Morales Referred Provider Specialty Orthopedic S urgery General Notes Ana Rashid 2024 09:26:04 AM > 01/07/2025 at 10:15am; patient informed Referral Priority Routine Reason dyspnea on exertion; family hx CHF; ECHO pending Diagnosis 1 Dyspnea on exertion (R06.00) [facility] Referring Provider First Name Dick Chu Referring Provider Last Name Andrews Referring Provider Speciality Family Natan ctice Referred Provider Marcy Pierre Referred Provider Specialty Cardiovascul ar Disease General Notes Ana Rashid 2024 03:41:29 PM > faxed to [facility] Cardiology, Ana Rashid 01/02/2025 09:31:27 AM > 01/20/2025 at 02:15pm Referral Priority Routine Medications Medication SIG (Take, Route, Frequency, Duration) [...] Problem Status W/U Status Risk Notes Problem Sinusitis (30332777) Sinusitis (J32.9) Active confirmed Problem Hypertension (82995429) HTN (hypertension) (I10) Active confirmed Problem Hyperlipidemia (79345017) Hyperlipidemia (E78.5) Active confirmed Problem Morbid obesity (354536461) Morbid obesity (E66.01) Active confirmed Problem Osteopenia (946623553) Osteopenia (M85.80) Active confirmed Problem Diabetes mellitus without complication (223857713) Other specified diabetes mellitus without complications (E13.9) Active confirmed Problem Obese class II (537904935037023) BMI 36.0-36.9,adult (Z68.36) Active confirmed Problem Osteoporosis (19793013) Osteoporosis (M81.0) Active confirmed Problem Obese class II (370654542269381) BMI 38.0-38.9,adult (Z68.38) Active confirmed Problem Chronic constipation (281034898) Chronic constipation (K59.00) Active confirmed Problem Ventricular premature complex (disorder) (472961187) PVC (premature ventricular contraction) (I49.3) Active confirmed Problem Obese class II (147321667368275) BMI 37.0-37.9, adult (Z68.37) Active confirmed Vital Signs Heart Rate 66 /min 05/12/2025 Blood pressure diastolic 100 mm Hg 05/12/2025 Height 66.50 in 05/12/2025 Blood pressure systolic 148 mm Hg 05/12/2025 Weight 241.2 lbs 05/12/2025 BMI 38.34 kg/m2 05/12/2025 Encounters Encounter Location Date Provider Diagnosis Nini 1210 [facility] [address] [place] [id number] 01/01/2025 R Vlad Andrews Right hip pain M25.5 51 ; Dyspnea on exertion R06.00 ; HTN (hypertension) I10 and BMI 36.0-36.9,adult Z68.36 [facility] [address] [place] [id number] 05/12/2025 Joya Murillo Right hip pain M25.5 51 ; Adult general medical exam Z00.00 ; Dyspnea on exertion R06.00 ; HTN (hypertension) I10 ; BMI 38.0-38.9,adult Z68.38 ; Hyperlipidemia E78.5 ; Osteoporosis M81.0 and Morbid obesity E66.01 [facility] [address] [place] [id number] 05/13/2025 Joya Murillo Bright [facility] [address] [place] [id number] 05/14/2025 R Vlad Andrews Bright [facility] [address] [place] [id number] 05/06/2025 R Vlad Andrews [place] [facility] [address] [place] [id number] 05/12/2025 Joya Murillo Assessments Encounter Date Diagnosis (ICD Code) Assessment Notes Treatment Notes Treatment Clinical Notes Section Notes 01/01/2025 Right hip pain (ICD-10 - M25.551) 01/01/2025 Dyspnea on exertion (ICD-10 - R06.00) 05/12/2025 Adult general medical exam (ICD-10 - Z00.00) 05/12/2025 Right hip pain (ICD-10 - M25.551) will refer to [facility] pt requests 05/12/2025 Dyspnea on exertion (ICD-10 - R06.00) 01/01/2025 HTN (hypertension) (ICD-10 - I10) 01/01/2025 BMI 36.0-36.9,adult (ICD-10 - Z68.36) 05/12/2025 HTN (hypertension) (ICD-10 - I10) 05/12/2025 BMI 38.0-38.9,adult (ICD-10 - Z68.38) discussed chair exercise; food eating control measures 05/12/2025 Hyperlipidemia (ICD-10 - E78.5) 05/12/2025 Osteoporosis (ICD-10 - M81.0) 05/12/2025 Morbid obesity (ICD-10 - E66.01) Plan Of Treatment Next Appt Details Provider Name:Dick Michel, 05/14/2025 10:36:00 AM, [address], [address], [place], [place], [id number], Insurance Providers Payer Name Payer Address Payer Phone Subscriber Number Group Number Insured Name Patient Relationship to Insured Coverage Start Date Coverage End Date MEDICARE PART B [address] [address] [place] [address] [id number] SHANIKA ARCHER Self - patient is the insured ILIA MEDICARE SUPPLEMENT [address] [address] [place], [place] [id number] SHANIKA ARCHER Self - patient is the insured Medical (General) History Medical History History ICD Code Hypertension right femur fracture 2020 pelvic Fx- 2012 Surgical History Surgery Date(Month/Year) Tonsilectomy Spleenectomy 2001 Total Hysterectomy LT Hip Replacement Hernia Repair 11/23/2020 [facility] Hospitalization History Reason Date(Month/Year) [facility] with several pelvic Fx 03/15-03/21/2013 [facility]; surgery for Fx right hi p 05/17-05/19/1021
--- OUTSIDE RECORDS SUMMARY | 2025-05-14 11:29 | XMS_ITS | Patient Health Record ---
Author Organization [facility] Address [address] [place] [address] Care Team Providers Care Mine Exploration Engineer Name Role Phone Self Referral, Self Primary Care Provider Taylor Velarde Unavailable Migration, Provider Unavailable Unavailable Allergies No Known Allergies Reason For Referral No Information Medications Medication SIG (Take, Route, Frequency, Duration) [...] review a nd pick correct strength-formulation from BinOpticsspan options. If intended option is not shown, discontinue and re-order from Quick Search* Active Losartan Potassium 25 MG Tablet 1 tab(s) orally once a day PRN Active Social History Tobacco Use: Social History Observation Description Date Details (start date - stop date) Never Smoker NA - NA Social History General Social Info Question Answer Notes Substance use:- Smoking status: nonsmoker (portal) Did you have a drink containing alcohol in the p ast year? No (portal) Have you used drugs other th an those for medical reasons in the past 12 months? No (portal) Personal History Marital status (portal) Do you have a partner or carlo ed one who provides emotional support or feels safe to talk to? Yes (portal) Do you have a partner or carlo ed one who can help with physical tasks (driving, cooking, helping to move) if you are unable to do so for yourself? Yes (portal) What is your highest level of education? 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 No (portal) Do you drink soda, pop, or s weet drinks (eg coffee) more than 2-3 times per week? Yes (portal) Problems Problem Type SNOMED Code ICD Code Onset Dates Problem Status W/U Status Risk Notes Problem Primary osteoarthritis (432737230) Unilateral primary osteoarthriti s, right knee (M17.11) Active confirmed Problem Other meniscus derangements, anterior horn of medial meniscus, left knee (M23.312) Active confirmed Problem Pain of right knee region (finding) (153624450830181) Pain in right knee (M25.561) Active confirmed Pt reports having seen significant improvement over time with prior injections as well as recently-comp leted PT. Currently pt reports continuing improvement as well as lasting benefit from most recent injection. Discussed and recommended ECSW for the right lateral hip/IT band, will reach out with pricing for this. Otherwise, for now pt wishes to continue with home stretching and exercise and will reach out for injections as needed. Follow up 6-8 weeks or sooner if needed. 10/10/22 Will repeat lateral compartment injection as pt noted 6-7 months relief previously as well as improvement in function and exercise tolerance. Encounters Encounter Location Date Provider Diagnosis [facility] [address] [place] [address] 08/23/2024 Provider Migration Plan Of Treatment Pending Test Test Name Order Date CCM Chronic Care Management Initiation ( G0506) 04/03/2022 TENPIRR - Right Piriformis Tenotomy (270 03) 07/24/2022 Future Test Test Name Order Date DME KneeR - Lateral Supercharger Mechanic Knee Brace - Right (L1851) 04/03/2022 Trochanteric Bursa Injection [D/E] - Rig ht () 04/03/2022 Knee IA Injection Fluoro [D/E] - Right ( ) 04/03/2022 Trochanteric Bursa Injection [D/E] - Rig ht () 04/05/2022 FemOR: Right Femoral-obturator Block (64 447 G000) 04/05/2022 PT - Movement Analysis; Eval uation and Treatment (78566, 05921, 68880, 19995, 15896, 63110) 04/06/2022 SINR: Right S1-S4 Sacroiliac nerve block s (12807 G000) 04/12/2022 Hip IA Injection [D/E] - Right () 0 04/26/2022 Knee IA Injection Fluoro [D/E] - Right ( ) 05/18/2022 Hip IA Injection [D/E] - Right () 1 09/17/2021 Knee IA Injection Fluoro [D/E] - Right ( ) 10/10/2022 Insurance Providers Payer Name Payer Address Payer Phone Subscriber Number Group Number Insured Name Patient Relationship to Insured Coverage Start Date Coverage End Date Medicare - S [address] [id number] Dee Dorantes Self - patient is the insured 1 Aetna [facility] [address] [address] [facility] [place] [address] [id number] Dee Dorantes Self - patient is the insured 2 Medical (General) History Medical History History ICD Code Knee Pain Osteoarthritis Fractured Pelvis Surgical History Surgery Date(Month/Year) Tonsillectomy Splenectomy Left Hip Replacement Hysterectomy Right Femur Surgery Hospitalization History Reason Date(Month/Year) Pelvic Injury 2012
--- OUTSIDE RECORDS SUMMARY | 2025-05-14 11:29 | XMS_ITS | Encounter Summary ---
[facility] Address [address] [place] [address] Care Team Providers Care Stonemason Name Role Phone Phu Sparrow MD Primary Care Provider Encounter Details Date Type Department Care Team (Late st Contact Info) Description 10/12/2015 External CPT II MEDICAL INSURANCE CODER - [facility] Social History Tobacco Use Types Packs/Day Years Used Date Smoking Tobacco: Never Assessed Comments Unknown Sex and Gender Information Value Date Recorded Sex Assigned at Not on file Legal Sex Female 10:50 AM EDT Gender Identity Not on file Sexual Orientation Not on file documented as of this encounter Plan of Treatment Not on file documented as of this encounter Visit Diagnoses Not on filedocumented in this encounter Additional Health Concerns Infection Onset Date Last Indicated Resolved Time COVID Screen (preop/placement) 05/17/2021 05/17/2021 05/17/2021 8:28 PM EDT documented as of this encounter Care Teams Stonemason Relationship Specialty Start Date End Date Phu Sparrow MD [address] [facility] [address] [place] [id number] PCP - General Family Medicine 05/17/21 documented as of this encounter
== END ==
LOC: SL 11:27
PROVIDERS: PCP Family Medicine; Visit Provider Internal Medicine Pulmonary Disease
DX: R06.09 Other forms of dyspnea (principal)

== ENCOUNTER 2025-06-09 09:42 | Outpatient (CLI) | payer MEDICARE, OTHER, SELFPAY ==
--- OUTSIDE RECORDS SUMMARY | 2023-12-25 10:00 | XMS_ITS ---
Author Organization [facility] Address [address] [facility] [address] [place] [id number] Care Team Providers Care Denture Finisher Name Role Phone Dick Sparrow Primary Care Provider Allergies No Known Allergies REASON FOR VISIT discuss referral cardiology Medications Medication SIG (Take, Route, Frequency, Duration) Notes Start Date End Date Status Losartan Potassium-HCTZ 50-12.5 MG 1 tab(s) orally once a day; Duration: 90 days Active Problems Problem Type SNOMED Code ICD Code Onset Dates Problem Status W/U Status Risk Notes Problem Ventricular premature complex (disorder) (954535854) PVC (premature ventricular contraction) (I49.3) Active confirmed Vital Signs Weight 222.2 lbs 12/25/2023 Blood pressure systolic 142 mm Hg 12/25/19 24 Blood pressure diastolic 88 mm Hg 024 Heart Rate 66 /min 12/25/2023 Height 66.50 in 12/25/2023 BMI 35.32 kg/m2 12/25/2023 Encounters Encounter Location Date Provider Diagnosis [facility] [address] [facility] [address] [place] [id number] 12/25/2023 Dick Sparrow PVC (premature ventricular contraction) I49.3 Assessments Encounter Date Diagnosis (ICD Code) Assessment Notes Treatment Notes Treatment Clinical Notes Section Notes 12/25/2023 PVC (premature ventricular contraction) (ICD-10 - I49.3) She is provided reassurance that should notify me if she experiences any palpitations or chest pain. Plan Of Treatment Treatment Notes Assessment Notes PVC (premature ventricular contraction) She is provided reassurance that should notify me if she experiences any palpitations or chest pain. Next Appt Details Follow Up: prn, Reason: Progress Notes * DANG ARCHEROB:1945 ([age] yo F)Acc No.[id number]:12/25/2023 Progress Notes Patient: SHANIKA FARMER Provider: Dick Sparrow M.D. :1945 A ge:78 Y S ex:Female Date:12/25/2023 Address:[address], [place], [id number] Subjective: * Chief Complaints: * 1 . Discuss referral cardiology. * HPI: C ardiology: Duran had a recent [employer] Screening which was essentially normal but she was told her heart rhythm showed an extra beat. She has been completely asymptomatic with no palpitations, chest pain, or increased shortness of breath. She does report only taking her losartan as needed because she was having low blood pressure readings with systolics around 100. When she had her last orthopedic surgery, her surgeon told her she should quit taking the losartan. If her blood pressure is over 140, she will take a dose. * ROS: D ERMATOLOGY: no R samuel. n o H matthew. G ASTROENTEROLOGY: no V omiting. n o D iarrhea. U ROLOGY: no D ifficulty urinating. n o B lood in urine. * Medical History: H ypertension. * Surgical History: T onsilectomy , Spleenectomy , Total Hysterectomy , LT Hip Replacement , Hernia Repair 11/23/2020. * Family History: F ather: 81 yrs, CHF. M other: 97 yrs, old age. 2 brother(s) . 2 son(s) , 1 daughter(s) . . * Social History: C URRENT TOBACCO USE: No . C affeine: yes, frequency: diet coke. Home smoke detector use: yes. Alcohol: No. * Medications: T aking Losartan Potassium-HCTZ 50-12.5 MG Tablet 1 tab(s) orally once a day , Medication List reviewed and reconciled with the patient * Allergies: N .K.D.A. Objective: * Vitals: W t:222.2, Temp:98.2, BP:142/88, HR:66, O2 Sat:97% on RA, Nurse:DAVID, Ht: 66.50, BMI:35.32. * Examination: C ardiology: General Appearance: p leasant, NAD. C arotid upstroke:?normal, no bruits. H eart sounds: R RR, no ectopy. M urmur, click , gallop: n one. L ungs: c lear, no rales or wheezes. E xtremities: n o leg edema. ? * Physical Examination: S he brings in a rhythm strip from her recent [employer] screening test that shows a single PVC. Assessment: * Assessment: 1. P VC (premature ventricular contraction) - I49.3 (Primary) Plan: * Treatment: * Procedure Codes: 9 4760 PULSE OX * Follow Up: p rn * Images: Billing Information: * Visit Code: 93511 Office Visit, Est Pt., Level 3. * Procedure Codes: 15759 PULSE OX. * Electronic signature of Dick Sparrow MD on 06/09/2025 at 09:44 AM EDT Sign off status: Pending * Provider: Dick Sparrow M.D. Date: 0 12/25/2023 Generated for Erick mobley/Debbie/Soledad on: 0 06/09/2025 09:44 AM EDT History and Physical Notes * HPI (History of Present Illness) Category Sub-Category Detail Notes Category Not es Cardiology She does report only taking her losartan as needed because she was having low blood pressure readings with systolics around 100. When she had her last orthopedic surgery, her surgeon told her she should quit taking the losartan. If her blood pressure is over 140, she will take a dose. Physical Examination Category Sub-Category Detail Notes Section Note s She brings in a rhythm strip from her recent [employer] screening test that shows a single PVC Examination Category Sub-Category Detail Notes Category Not es Cardiology Lungs: clear, no rales or wheezes Heart sounds: RRR, no ectopy Carotid upstroke: normal, no bruits Extremities: no leg edema Murmur, click , gallop: none General Appearance: pleasant, NAD
--- OUTSIDE RECORDS SUMMARY | 2024-08-23 17:00 | XMS_ITS ---
Author Organization [facility] Address [address] [place] [address] Care Team Providers Care Etch Operator [employer]iconductor Wafers Name Role Phone Self Referral, Self Primary Care Provider Taylor Velarde Unavailable [phone] Migration, Provider Unavailable Unavailable REASON FOR VISIT [...] Active Encounters Encounter Location Date Provider Diagnosis [facility] [address] [place] [address] 08/23/2024 Provider Migration Plan Of Treatment No Information Progress Notes * Pasha ARCHEROB:1945 ([age] yo F)Acc No.[id number]:08/23/2024 Patient: Dee Pedraza Provider: Sole montenegro Migration [...] Electronic signature of Tomeka vaughn Migration on 06/09/2025 at 09:45 AM EDT Sign off status: Pending * Provider: Sole montenegro Migration Date: 10/24/2023 Generated for Erick mobley/Debbie/Soledad on: 0 06/09/2025 09:45 AM EDT
--- OUTSIDE RECORDS SUMMARY | 2025-01-01 10:15 | XMS_ITS ---
Author Organization [facility] Address [address] [place] [id number] Care Team Providers Care Integrity Specialist Name Role Phone Dick Sparrow Primary Care Provider Allergies No Known Allergies Results Component Value Reference Range Notes Echocardiogram Reviewed date:02/08/2025 11:21:25 PM Interpretation: Performing Lab: Notes/Report: Reason For Referral Reason right hip pain; hx o f remote ORIF repair of fx Diagnosis 1 Right hip pain (M25. 551) [facility] Referring Provider First Name Dick Chu Referring Provider Last Name Andrews Referring Provider Speciality Family Natan gilliam Referred Provider Simeon Moraels Referred Provider Specialty Orthopedic S urgery General Notes Ana Rashid 2024 09:26:04 AM > 01/07/2025 at 10:15am; patient informed Referral Priority Routine Reason dyspnea on exertion; family hx CHF; ECHO pending Diagnosis 1 Dyspnea on exertion (R06.00) [facility] Referring Provider First Name Dick Chu Referring Provider Last Name Andrews Referring Provider Speciality Family Gama ctice Referred Provider Marcy Pierre Referred Provider Specialty Cardiovascul ar Disease General Notes Ana Rashid 2024 03:41:29 PM > faxed to [facility] CardiologyGay Brynn 01/02/2025 09:31:27 AM > 01/20/2025 at 02:15pm Referral Priority Routine REASON FOR VISIT referral for orthopedic Medications Medication SIG (Take, Route, Frequency, Duration) Notes Start Date End Date Status Losartan Potassium-HCTZ 50-12.5 MG 1 tab(s) orally once a day; Duration: 90 days prn Not-Takin g Problems Problem Type SNOMED Code ICD Code Onset Dates Problem Status W/U Status Risk Notes Problem Obese class II (130272001174 105) BMI 36.0-36.9,a dult (Z68.36) Active confirmed Vital Signs Weight 232.6 lbs 01/01/2025 Blood pressure systolic 132 mm Hg 01/02/20 25 Blood pressure diastolic 86 mm Hg 025 Heart Rate 67 /min 01/01/2025 Height 66.50 in 01/01/2025 BMI 36.98 kg/m2 01/01/2025 Encounters Encounter Location Date Provider Diagnosis [facility] [address] [facility] [address] [place], [place] [address], [place] [id number] 01/01/2025 Dick Sparrow Right hip pain M25.551 [...] * DANG ARCHEROB:1945 ([age] yo F)Acc No.[id number]:01/01/2025 Progress Notes Patient: SHANIKA FARMER Provider: Dick Sparrow M.D. :1945 A ge:79 Y S ex:Female Date:01/01/2025 Address:[address], [place], [id number] Subjective: * Chief Complaints: * 1 . [...] Repair 11/23/2020, Intramedullary nailing of right hip fx - Dr. Otero/ [facility] 05/2021. * Family History: F ather: 81 [...] Allergies: N .K.D.A. Objective: * Vitals: W t: 232.6, Temp: [...] TN (hypertension) - I10 4 . B MA 36.0-36.9,adult - Z68.36 Plan: * Treatment: 2. D yspnea on exertion I maging: Echocardiogram (Performed Date - 01/12/2025) ? Referral To:Marcy Pierre??Cardiovascular Disease ?Reason:dyspnea on exertion; family hx CHF; ECHO pending 3.?HTN (hypertension)?Imaging: Echocardiogram (Performed Date - 01/12/2025)* Ana Rashid 01/01/2025 03:4 2:20 PM > no auth required as MCR is primary; CPT code 17161; faxed to [facility] Scheduling Appt 01/12/25 @ 2:30Dick Sparrow 02/08/2025 11:21:13 PM > reviewed. Referred to cardiology * Procedure Codes: G 2211 Complex e/m visit add on, 3075F SYST BP GE 130 - 139MM HG, 3079F DIAST BP 80-89 MM HG * Follow Up: p rn * Images: Billing Information: * Visit Code: 83890 Office Visit, Est Pt., Level 3. * Procedure Codes: G2211 Complex e/m visit add on. 3075F SYST BP GE 130 - 139MM HG. 3079F DIAST BP 80-89 MM HG. * Electronic signature of Dick Sparrow MD on 06/09/2025 at 09:44 AM EDT Sign off status: Pending * Provider: Dick Sparrow M.D. Date: 0 01/01/2025 Generated for Printi ng/Faprincessg/eTransmitting on: 0 06/09/2025 09:44 AM EDT History [...]
--- OUTSIDE RECORDS SUMMARY | 2025-05-12 05:30 | XMS_ITS ---
Author Organization [facility] Address [address] [place] [id number] Care Team Providers Care Slab Lifting Engineer Name Role Phone Dick Sparrow Primary Care Provider MurilloLarisa longine Unavailable [phone] Allergies No Known Allergies Results Component Value [...] Interpretation:Normal Performing Lab: Notes/Report: Test performed by [facility] [address] [place] [address] , [address], [place] [address] Kamlesh Cruz MD, Food Service Attendant CLIA: [id number] Sodium 143 135-145 mmol/L Potassium 3.8 3.5-5.3 [...] negative Performing Lab: Notes/Report: Test performed by [facility] [address] [place], [place] [address] [place] , [address], [place] [address] Kamlesh Cruz MD, Food Service Attendant CLIA: [id number] Erythrocyte Sedimentation Rate (ESR), Automated 39 <31 mm/hr Rheumatoid Factor <10 <14.1 IU/mL C-Reactive Protein (CRP) 0.68 <0.50 mg/dL Antinuclear Antibodies (SUAD) Screen, Reflex SUAD 9 Panel Negative Negative This test is performed by Multiplex Bead Immunoassay methodology. Antinuclear Antibodies (SUAD) Result Note SEE COMMENT For positive Autoantibodies, please refer to the interpretive chart here: [email or web address] CCP Antibodies <0.5 <0.5-3.0 U/mL P-Uric Acid Reviewed date:05/14/2025 10:32:07 AM Interpretation:5.7 Performing Lab: Notes/Report: Test performed by [facility] [address] [place] [address] , [address], [place] [address] Kamlesh Cruz MD, Food Service Attendant CLIA: [id number] Uric Acid 5.7 2.4-7.0 mg/dL REASON FOR [...] Status Risk Notes Problem Obese class II (704041117195 105) BMI 38.0-38.9,vivek lt (Z68.38) Active confirmed Problem Morbid obesity (488308659) Morbid obesity (E66.01) Active confirmed Vital Signs Weight 241.2 lbs 05/12/2025 Blood pressure systolic 148 mm Hg 05/12/20 25 Blood pressure diastolic 100 mm Hg 025 Heart Rate 66 /min 05/12/2025 Height 66.50 in 05/12/2025 BMI 38.34 kg/m2 05/12/2025 Encounters Encounter Location Date Provider Diagnosis [facility] [address] [facility] [address] [place], [place] [address] [id number] 05/12/2025 Joya Murillo Right hip pain M25.5 [...] after sta rting weight loss med, Reason: Progress Notes * DANG ARCHEROB:1945 ([age] yo F)Acc No.[id number]:05/12/2025 Annual Wellness Visit Patient: SHANIKA FARMER Provider: RADHA Mccarthy :1945 A ge:80 Y S ex:Female Date:05/12/2025 Address:[address] [facility] [id number] Pcp:Dick Sparrow Subjective: * Chief Complaints: * 1 . Annual Wellness visit-Medicare. * HPI: H PI: Patient is here today for P atient is here today for a Medicare Annual Wellness Visit. Pt states she is doing good and denies any new concerns. Pt is fasting.? H ip/Thigh: walks outside with a cane for stability; requests referral to [facility] for arthritis. c/o hip pain r ight [...] upon arrising. C ARDIOLOGY: Positive for f ollows with cardiology for heart issues.?no C hest [...] hip fx - Dr. Otero/ [facility] 05/2021. * Hospitalization/Major Diagno stic Procedure: C karyn [facility]; surgery for Fx right hip 05/17-05/19/1021, [facility] with several pelvic Fx 03/15-03/21/2013. * Family [...] [place] (hypertension) - I10 5 . B PA 38.0-38.9,adult - Z68.38 6 . H yperlipidemia [...] p latlet 303 100 - 400 * Mily Iqbale Alan 05/12/2025 10 :51:21 AM EDT >Larisa Murilloine 05/14/2025 10:31:21 AM EDT >I spoke with [...] IN RCRD, 1003F LEVEL OF ACTIVITY ASSESS, 16026 CBC WITH AUTO DIFF, 1036F TOBACCO NON-USER, 3017F COLORECTAL CA SCREEN DOC REV, G8399 PT W/DXA DOCUMENT OR ORDER, 1125F AMNT PAIN NOTED PAIN PRSNT, G8510 NEG SCR Depression PT NOT ELIG F/U/PLN DOC, G8950 PREHTN/HTN BP DOC INDCD F/U DOC, G8753 [...] starting weight loss med * Images: Drawin05/12/25 [facility] Billing Information: * Visit Code: 27352 Office Visit, Est Pt., Level 3. Modifiers: 25 * Procedure Codes: G0439 ANNUAL WELLNESS VST; PPS SUBSQT VST. G2211 Complex e/m visit add on. 1090F PRES/ABSN URINE INCON ASSESS. 3288F FALL RISK ASSESSMENT DOCD. 1170F FXNL STATUS ASSESSED. 1159F MED LIST DOCD IN RCRD. 1003F LEVEL OF ACTIVITY ASSESS. 21010 CBC WITH AUTO DIFF. 1036F TOBACCO NON-USER. [...] Electronic signature of Amarilis Murillo APRN on 06/09/2025 at 09:45 AM EDT Sign off status: Pending * Provider: RADHA Mccarthy Date: 0 05/12/2025 Generated for Erick mobley/Debbie/Kavyaitting on: 0 06/09/2025 09:45 AM EDT History and Physical Notes * [...]
--- OUTSIDE RECORDS SUMMARY | 2025-06-09 09:45 | XMS_ITS | Encounter Summary ---
Author Organization [facility] Address [address] [place] [id number] Care Team Providers Care Choke Reamer Name Role Phone Phu Sparrow MD Primary Care Provider Encounter Details Date Type Department Care Team (Late st Contact Info) Description 10/29/2018 External CPT II RN SURGICAL PCU - [facility] Social History Tobacco Use [...] documented as of this encounter Care Teams Choke Reamer Relationship Specialty Start Date End Date Phu Sparrow MD [address] [place] [address] [place] [id number] PCP - General Family Medicine 05/17/21 documented as of this encounter
--- OUTSIDE RECORDS SUMMARY | 2025-06-09 09:45 | XMS_ITS | Patient Health Record ---
Author Organization [facility] Address [address] [place] [id number] Care Team Providers Care Cat Scanner Operator Name Role Phone Dick Sparrow Primary Care Provider Joya Murillo Unavailable [phone] Allergies No Known Allergies Results Component Value [...] Interpretation:Normal Performing Lab: Notes/Report: Test performed by [facility], [place] , [address], [place] [address] Kamlesh Cruz MD, Food Service Specialist CLIA: [id number] Sodium 143 135-145 mmol/L Potassium 3.8 3.5-5.3 [...] negative Performing Lab: Notes/Report: Test performed by [facility] [address] [place], [place] [address] [place] , [address], [place] [address] Kamlesh Cruz MD, Food Service Specialist CLIA: [id number] Erythrocyte Sedimentation Rate (ESR), Automated 39 <31 mm/hr Rheumatoid Factor <10 <14.1 IU/mL C-Reactive Protein (CRP) 0.68 <0.50 mg/dL Antinuclear Antibodies (SUAD) Screen, Reflex SUAD 9 Panel Negative Negative This test is performed by Multiplex Bead Immunoassay methodology. Antinuclear Antibodies (SUAD) Result Note SEE COMMENT For positive Autoantibodies, please refer to the interpretive chart here: [email or web address] [email or web address] CCP Antibodies <0.5 <0.5-3.0 U/mL P-Uric Acid Reviewed date:05/14/2025 10:32:07 AM Interpretation:5.7 Performing Lab: Notes/Report: Test performed by [facility] [address] [place], [place] [address] [employer] [place] , [address], [place] [address] Kamlesh Cruz MD, Food Service Specialist CLIA: [id number] Uric Acid 5.7 2.4-7.0 mg/dL Reason For [...] 1 Dyspnea on exertion (R06.00) [facility] Referring Provider First Name Dick Chu Referring Provider Last Name Andrews Referring Provider Speciality Family Natan ctice Referred Provider Marcy Pierre Referred Provider Specialty Cardiovascul ar Disease General Notes Ana Rashid 2024 03:41:29 PM > faxed to [facility] Cardiology, Ana Rashid 01/02/2025 09:31:27 AM > 01/20/2025 at 02:15pm Referral Priority Routine Medications Medication SIG (Take, Route, Frequency, Duration) Notes Start Date End Date Status Losartan Potassium-HCTZ 50-12.5 MG Take 1 tablet by mouth once daily; Duration: 90 days Active Contrave 8-90 MG 1 tablet in the morning x 1 week, then 1 tab bid x 1 week, then 2 tabs in AM and 1 in PM x 1 week, then 2 tab bid Orally twice a day; Duration: 30 days 05/19/2025 Active Zepbound 2.5 MG/0.5ML 0.5 mL Subcutaneou s; Duration: 30 day(s) pt has BMI 38+ , asthma with SOB and heart disease 05/12/2025 Active Problems Problem Type SNOMED Code ICD Code Onset Dates Problem Status W/U Status Risk Notes Problem Sinusitis (60727520) Sinusitis (J32.9) Active confirmed Problem Hypertension (99853226) HTN (hypertension) (I10) Active confirmed Problem Hyperlipidemia (66454166) Hyperlipidemia (E78.5) Active confirmed Problem Morbid obesity (145868116) Morbid obesity (E66.01) Active confirmed Problem Osteopenia (031391428) Osteopenia (M85.80) Active confirmed Problem Diabetes mellitus without complication (020704538) Other specified diabetes mellitus without complications (E13.9) Active confirmed Problem Obese class II (278631862908475) BMI 36.0-36.9,adult (Z68.36) Active confirmed Problem Osteoporosis (77877859) Osteoporosis (M81.0) Active confirmed Problem Obese class II (947843879813430) BMI 38.0-38.9,adult (Z68.38) Active confirmed Problem Chronic constipation (967242828) Chronic constipation (K59.00) Active confirmed Problem Ventricular premature complex (disorder) (077053846) PVC (premature ventricular contraction) (I49.3) Active confirmed Problem Obese class II (771527984156013) BMI 37.0-37.9, adult (Z68.37) Active confirmed Vital Signs Heart Rate 66 /min 05/12/2025 Blood pressure diastolic 100 mm Hg 05/12/2025 Height 66.50 in 05/12/2025 Blood pressure systolic 148 mm Hg 05/12/2025 Weight 241.2 lbs 05/12/2025 BMI 38.34 kg/m2 05/12/2025 Encounters Encounter Location Date Provider Diagnosis [facility] [address] [place] [id number] 01/01/2025 R Vlad Andrews Right hip pain M25.5 51 ; Dyspnea on exertion R06.00 ; HTN (hypertension) I10 and BMI 36.0-36.9,adult Z68.36 [facility] [address] [place] [id number] 05/12/2025 Joya Murillo Right hip pain M25.5 51 ; Adult general medical exam Z00.00 ; Dyspnea on exertion R06.00 ; HTN (hypertension) I10 ; BMI 38.0-38.9,adult Z68.38 ; Hyperlipidemia E78.5 ; Osteoporosis M81.0 and Morbid obesity E66.01 [facility] [address] [place] [id number] 05/13/2025 Joya Murillo [facility] [address] [place] [id number] 05/06/2025 R Vlad Andrews [facility] [address] [place] [id number] 05/12/2025 Joya Murillo [facility] [address] [place] [id number] 05/14/2025 Joya Murillo [facility] [address] [facility] [address] [place] [id number] 05/22/2025 Dick Sparrow Assessments Encounter Date Diagnosis (ICD Code) Assessment [...] obesity (ICD-10 - E66.01) Plan Of Treatment No Information Insurance Providers Payer Name Payer Address Payer Phone Subscriber Number Group Number Insured Name Patient Relationship to Insured Coverage Start Date Coverage End Date MEDICARE PART B [address] [address] [place] [address] [id number] SHANIKA ARCHER Self - patient is the insured ILIA MEDICARE SUPPLEMENT [address] [address] [place], [place] [id number] SHANIKA ARCHER Self - patient is the insured Medical (General) History Medical History History ICD Code Hypertension right femur fracture 2020 pelvic Fx- 2012 Surgical History Surgery Date(Month/Year) Tonsilectomy Spleenectomy 2001 Total Hysterectomy LT Hip Replacement Hernia Repair 11/23/2020 Intramedullary nailing of right hip fx - Dr. Otero/ [facility] 05/2021 Hospitalization History Reason Date(Month/Year) H with several pelvic Fx [facility]03[facility] for Fx right hi p 05/17-05/19/1021
--- OUTSIDE RECORDS SUMMARY | 2025-06-09 09:45 | XMS_ITS | Clinical Summary ---
[facility] Address [address] [place] [address] Care Team Providers Care Rod Finisher Name Role Phone Phu Sparrow MD Primary [...] - Adults (1 - 1-dose 75+ series) INFLUENZA VACCINE 04/17/2025 COVID-19 Vaccine ( season) 2025 COLONOSCOPY 04/15/2028 04/15/2018 COLORECTAL CANCER SCREENING 04/15/2028 MAMMOGRAM Discontinued 03/05/2017 Medical Devices Implanted Type Area Tv Production Assistant Device Identifier Shelf Expiration Date Model / Serial / Lot Cup Acet Pinn Sector W Griptn 54mm - [id number] Implanted:Qt y: 1 on 07/10/2016 by David Potts MD at [facility] Implant Left: Acetabulum DEPUY 03/16/2026 [id number] / / [id number] Scrw Canc Pinn 6.5x25mm - [id number] Implanted:Qt y: 1 on 07/10/2016 by David Potts MD at [facility] Implant Left: Acetabulum DEPUY 04/16/2026 [id number] / / [id number] Liner Acet Altrx Pinn Ntrl 48z92de - [id number] Implanted:Qt y: 1 on 07/10/2016 by David Potts MD at [facility] Implant Left: Acetabulum DEPUY 04/16/2021 [id number] / / [id number] Scrw Canc Pinn 6.5x20mm - [id number] Implanted:Qt y: 1 on 07/10/2016 by David Potts MD at [facility] Implant Left: Acetabulum DEPUY 01/14/2026 [id number] / / [id number] Stem Fem Corail Cmtls W/Col Amt Sz14 - [id number] Implanted:Qt y: 1 on 07/10/2016 by David Potts MD at [facility] Implant Left: Acetabulum DEPUY 03/16/2021 [id number] / / [id number] Hd Fem Ultamet/Art M/Cocr 08/30 36mm Pls1.5 - [id number] Implanted:Qt y: 1 on 07/10/2016 by David Potts MD at [facility] Implant Left: Acetabulum DEPUY 01/14/2021 [id number] / / [id number] Totl Hip Moa Depuy - [id number] Implanted:Qt y: 1 on 07/10/2016 by David Potts MD at [facility] Implant Left: Acetabulum DEPUY CAPHIPTOTAL DEP5 / / Kwire 3.6d690ax Ns Strl - [id number] Implanted:Qt y: 1 on 05/18/2021 by Jim Otero MD at [facility] Implant Right: Hip WERO ASHWINI [id number] 02/14/2026 [id number] / / [id number] Scrw Lag Gam3 Ti 10.1t339nx Strl - [id number] Implanted:Qt y: 1 on 05/18/2021 by Jim Otero MD at [facility] Implant Right: Hip WERO ASHWINI [id number] 01/14/2026 [id number] / / [id number] Scrw Lk Ful/Thrd 5x37mm Strl - [id number] Implanted:Qt y: 1 on 05/18/2021 by Jim Otero MD at [facility] Implant Right: Hip WERO ASHWINI [id number] 11/14/2025 [id number] / / [id number] Nail Fem Herminio/180kt Ti 130d 57i239vn Strl - [id number] Implanted:Qt y: 1 on 05/18/2021 by Jim Otero MD at [facility] Implant Right: Hip WERO ASHWINI [id number] 01/14/2026 [id number] / / [id number] Kwire 3.7e135jn Ns Strl - [id number] Implanted:Qt y: 1 on 05/18/2021 by Jim Otero MD at [facility] Implant Right: Hip WERO ASHWINI 01/14/2026 [id number] / / [id number] Insurance MEDICARE A & B Member Subscriber Plan / Payer (Ef fective 2011-Present) Name:Dee Dorantes Member ID:[id number] Relation to Subscriber:Self Name:Dee Dorantes Subscriber ID:[id number] Payer ID:[id number] Group ID:Not on file Type:Not on file Address: [facility] [address] [place] [id number] [facility] Advance Directives * CPR (Attempt to Resuscitate) [...] 1:43 PM 04/18/2016 9:39 PM Care Teams Rod Finisher Relationship Specialty Start Date End Date Phu Sparrow MD [facility] 36 [facility] [address] [place] [address] PCP - General Family Medicine 05/17/21
--- OUTSIDE RECORDS SUMMARY | 2025-06-09 09:45 | XMS_ITS | Encounter Summary ---
[facility] [address] [place] [address] Care Team Providers Care Nursing Surgical Services Director Name Role Phone Phu Sparrow MD Primary Care Provider Encounter Details Date Type Department Care Team (Late st Contact Info) Description 10/12/2015 External CPT II ELECTROCARDIOGRAM TECHNICIAN - [facility] Social History Tobacco Use [...] documented as of this encounter Care Teams Nursing Surgical Services Director Relationship Specialty Start Date End Date Phu Sparrow MD [address] [facility] [address] [place] [phone] PCP - General Family Medicine 05/17/21 documented as of this encounter
--- OUTSIDE RECORDS SUMMARY | 2025-06-09 09:45 | XMS_ITS | Encounter Summary ---
[facility] [address] [place] [id number] Care Team Providers Care Supervisor Personnel Clerks Name Role Phone Phu Sparrow MD Primary Care Provider Encounter Details Date Type Department Care Team (Late st Contact Info) Description 10/17/2016 External CPT II DRAW BENCH OPERATOR HELPER - [facility] Social History Tobacco Use [...] documented as of this encounter Care Teams Supervisor Personnel Clerks Relationship Specialty Start Date End Date Phu Sparrow MD [address] [place] [phone] PCP - General Family Medicine 05/17/21 documented as of this encounter
--- OUTSIDE RECORDS SUMMARY | 2025-06-09 09:45 | XMS_ITS | Patient Health Record ---
Author Organization [facility] Address [address] [place] [address] Care Team Providers Care Dining Service Inspector Name Role Phone Self Referral, Self Primary [...] review a nd pick correct strength-formulation from [employer] options. If intended option is not shown, [...] W/U Status Risk Notes Problem Primary osteoarthritis (493459907) Unilateral primary osteoarthriti s, right knee (M17.11) Active confirmed Problem Derangement of anterior horn of medial meniscus (3802912) Other meniscus derangements, anterior horn of medial meniscus, left knee (M23.312) Active confirmed Problem Pain of right knee region (finding) (487688925837239) Pain in right knee (M25.561) Active confirmed [...] tolerance. Encounters Encounter Location Date Provider Diagnosis Psychiatric [address] [place] [address] 08/23/2024 Provider Migration Plan Of Treatment Pending Test Test Name Order Date CCM Chronic Care Management Initiation ( G0506) 04/03/2022 TENPIRR - Right Piriformis Tenotomy (270 03) 07/24/2022 Future Test Test Name Order Date DME KneeR - Lateral Orthopedic Shoes Salesperson Knee Brace - Right (L1851) 04/03/2022 Trochanteric Bursa Injection [D/E] - Rig ht () 04/03/2022 Knee IA Injection Fluoro [D/E] - Right ( ) 04/03/2022 Trochanteric Bursa Injection [D/E] - Rig ht () 04/05/2022 FemOR: Right Femoral-obturator Block (64 447 G000) 04/05/2022 PT - Movement Analysis; Eval uation and Treatment (14339, 57678, 58506, 31250, 53262, 67122) 04/06/2022 SINR: Right S1-S4 Sacroiliac nerve block s (02701 G000) 04/12/2022 Hip IA Injection [D/E] - [...] Medicare - S [address] [address] [id number] Dee Dorantes Self - patient is the insured 1 [employer] Senior Supplemental [address] [address] [place] [address] [id number] Dee Dorantes Self - patient is the insured 2 Medical (General) History Medical History History ICD Code Knee Pain Osteoarthritis Fractured Pelvis Surgical History Surgery Date(Month/Year) Tonsillectomy Splenectomy Left Hip Replacement Hysterectomy Right Femur Surgery Hospitalization History Reason Date(Month/Year) Pelvic Injury 2012
--- OUTSIDE RECORDS SUMMARY | 2025-06-09 09:45 | XMS_ITS | Clinical Summary ---
Author Organization [facility] Address [address] [place] [phone] Care Team Providers Care Sanding Machine Operator Or Tender Name Role Phone Phu Sparrow MD Primary Care Provider [phone]- [phone] Allergies No known active allergies Medications losartan [...] [facility]-Bone Density Scan 1946 [facility]-Depression Screening 1946 [facility]-/Child/Adol SDOH Screenings 1946 [facility]- SDOH Screenings 1964 [facility]-Adult SDOH Screenings 1964 [facility]-DTaP,Tdap,and Td Vaccine s (1 - Tdap) 1965 [facility]-Pneumococcal Vaccine: 50 + Years (1 of 1 - PCV) 1996 [facility]-Zoster Vaccines (1 of 2) 1996 [facility]-RSV Vaccine: 60+ Years o r (1 - 1-dose 75+ series) 2021 [id number] Vaccine (1 - 2023- season) 2025 [facility]-Influenza Vaccine (#1) 2025 [facility]-Diabetes: Hemoglobin A1C [...] this topic Insurance MEDICARE [employer] Care Teams Sanding Machine Operator Or Tender Relationship Specialty Start Date End Date Phu Sparrow MD [address] [place] [id number] PCP - General 12/02/21
--- OUTSIDE RECORDS SUMMARY | 2025-06-09 09:45 | XMS_ITS | Encounter Summary ---
[facility] [address] [place] [phone] Care Team Providers Care Log Inspector Name Role Phone Phu Sparrow MD Primary Care Provider Encounter Details Date Type Department Care Team (Late st Contact Info) Description 10/23/2017 External CPT II DISCHARGE RN - [facility] Social History Tobacco Use [...] documented as of this encounter Care Teams Log Inspector Relationship Specialty Start Date End Date Phu Sparrow MD [address] [place] [phone] PCP - General Family Medicine 05/17/21 documented as of this encounter
[2025-06-09] MEDS: ALBUTEROL 0.083% 2.5 MG/3 ML NEB IH (10:52)
== END 2025-06-09 23:59 | disposition home or self-care (01) ==
LOC: RT 09:43
PROVIDERS: PCP Family Medicine; Visit Provider Internal Medicine Pulmonary Disease
DX: R94.2 Abnormal results of pulmonary function studies (principal); R06.09 Other forms of dyspnea; R06.02 Shortness of breath
CPT/HCPCS: 94060; 94618; 94726; 94729

== ENCOUNTER 2025-09-08 10:00 | Outpatient (RCR) | payer MEDICARE, SELFPAY | END 2025-09-08 23:59 | disposition home or self-care (01) | LOC: PT 10:00 | PROVIDERS: PCP Family Medicine; Visit Provider Orthopaedic Surgery Adult Reconstructive Orthopaedic Surgery | DX: M48.062 Spinal stenosis, lumbar region with neurogenic claudication (principal) | CPT/HCPCS: 97110; 97162 ==